=== PATIENT | female | born 1955 | race Two or more races ===

== ENCOUNTER 2016-09-18 15:43 | Inpatient (IN) | payer MEDICAID ==
[~2016-09-18] VITALS: Ht 170.2 cm; Wt 69.4 kg
[2016-09-18] MEDS ORDERED: IV NS 0.9% 1,000 ML BAG IV ONE (16:00)
[2016-09-18] MEDS ORDERED: MORPHINE SULFATE INJ 2 MG/ML DISP.SYRIN IV ONE (16:00)
[2016-09-18] MEDS ORDERED: ONDANSETRON HCL/PF 4 MG/2 ML VIAL IVP ONE (16:00)
[2016-09-18] MEDS ORDERED: DICYCLOMINE HCL INJ 20 MG/2 ML AMPUL IM ONE ×2 (16:00→16:01)
[2016-09-18] MEDS ORDERED: MORPHINE SULFATE INJ 4 MG/ML DISP.SYRIN ONE (16:01)
[2016-09-18] MEDS ORDERED: ONDANSETRON HCL/PF 4 MG/2 ML VIAL ONE ×3 (16:01→22:30)
[2016-09-18] MEDS ORDERED: IV NS 0.9% 1,000 ML ONE (16:01)
[2016-09-18] MEDS ORDERED: IV SET PRIMARY 1 EA INFUS.SET MC ONE (16:01)
[2016-09-18 16:16] LABS: BASOPHILS # (AUTO) 0.2 /CMM (0.0-0.2); BASOPHILS % (AUTO) 1.1 % (0.0-2.0); DIFF TOTAL % 100 %; EOSINOPHILS # (AUTO) 0.3 /CMM (0.0-0.7); EOSINOPHILS % (AUTO) 1.4 % (0.0-6.0); HEMATOCRIT 42 % (33-45); HEMOGLOBIN 14.2 g/dL (11.5-14.8); LYMPHOCYTES # (AUTO) 2.4 /CMM (0.8-4.8); LYMPHOCYTES % (AUTO) 12.1 % (20.0-44.0); MEAN CORPUSCULAR HEMOGLOBIN 31 PG (26.0-33.0); MEAN CORPUSCULAR HGB CONC 34 g/dl (31.0-36.0); MEAN CORPUSCULAR VOLUME 92 fL (82-100); MONOCYTES # (AUTO) 1.3 /CMM (0.1-1.30); MONOCYTES % (AUTO) 6.7 % (2.0-12.0); NEUTROPHILS # (AUTO) 15.5 /CMM (1.8-8.9); NEUTROPHILS % (AUTO) 78.7 % (43.0-81.0); PLATELET COUNT (AUTO) 162 /CMM (150-450); RED BLOOD CELL COUNT(AUTO) 4.56 MIL/uL (4.0-5.2); WHITE BLOOD COUNT (AUTO) 19.7 K/uL (4.3-11.0)
[2016-09-18 16:30] LABS: ALANINE AMINOTRANSFERASE 52 U/L (12-78); ALBUMIN 4.2 g/dL (3.4-5.0); ANION GAP 16 (5-14); ASPARTATE AMINOTRANSFERASE 71 U/L (15-37); BILIRUBIN,DIRECT 0.3 mg/dL (0.0-0.2); BILIRUBIN,TOTAL 1.1 mg/dL (0.2-1.0); CALCIUM, SERUM 9.5 mg/dL (8.5-10.1); CARBON DIOXIDE 26 mmol/L (21-32); CHLORIDE 104 mmol/L (98-107); CREATININE 1.4 mg/dL (0.6-1.3); GFR 38 mL/min (>60); GLUCOSE 191 mg/dL (74-106); INDIRECT BILIRUBIN 0.8 mg/dL (0.0-1.1); POTASSIUM 3.7 mmol/L (3.5-5.1); SODIUM SERUM 142 mmol/L (136-145); TOTAL PROTEIN, SERUM 8.3 g/dL (6.4-8.2); UREA NITROGEN, BLOOD 26 mg/dL (7-18)
[2016-09-18] MEDS ORDERED: ONDANSETRON HCL/PF 4 MG/2 ML VIAL IV ONE (17:30)
[2016-09-18] MEDS ORDERED: HYDROMORPHONE 1 MG/1 ML DISP.SYRIN ONE (17:39)
[2016-09-18] MEDS ORDERED: LISI40TA4 PO (17:53)
[2016-09-18] MEDS ORDERED: ASPI81TA2 PO (17:53)
[2016-09-18] MEDS ORDERED: INSU100V26 SQ (17:53)
[2016-09-18] MEDS ORDERED: METF10002 PO (17:53)
[2016-09-18] MEDS ORDERED: ATOR40TA PO (17:53)
[2016-09-18] MEDS ORDERED: HYDROMORPHONE INJ 2 MG/ML DISP.SYRIN IV ONE (18:00)
[2016-09-18] MEDS ORDERED: LORAZEPAM INJ 2 MG/ML VIAL ONE (18:39)
[2016-09-18] MEDS ORDERED: LORAZEPAM INJ 2 MG/ML VIAL IV ONE (19:00)
[2016-09-18 20:30] VITALS: BP 128/80
[2016-09-18] MEDS ORDERED: HYDROMORPHONE 1 MG/1 ML DISP.SYRIN IV PRN (22:30)
[2016-09-18] MEDS: ONDANSETRON HCL/PF 4 MG/2 ML VIAL IV PRN (22:34)
[2016-09-18] MEDS ORDERED: DEXTROSE 50%-WATER 50 ML DISP.SYRIN IV PRN (23:30)
[2016-09-18] MEDS ORDERED: ONDANSETRON HCL/PF 4 MG/2 ML VIAL IVP PRN (23:30)
[2016-09-18] MEDS ORDERED: Potassium Chloride 20 MEQ in IV D5/0.45 NACL 1,000 ML IV PRN (23:30)
[2016-09-19] MEDS: BLOOD SUGAR DIAGNOSTIC 1 EACH STRIP IN SCH ×4 (00:07→18:23)
[2016-09-19] MEDS: INSULIN REGULAR, HUMAN 100 UNIT/ML 3 ML VIAL SQ PRN ×4 (00:21→18:26)
[2016-09-19] MEDS ORDERED: HYDROMORPHONE 1 MG/1 ML DISP.SYRIN ONE (02:14)
[2016-09-19] MEDS ORDERED: ONDANSETRON HCL/PF 4 MG/2 ML VIAL ONE (05:27)
[2016-09-19] MEDS ORDERED: HYDROMORPHONE INJ 2 MG/ML DISP.SYRIN ONE (05:44)
[2016-09-19] MEDS: HYDROMORPHONE INJ 2 MG/ML DISP.SYRIN IV PRN ×2 (05:48→13:12)
[2016-09-19] MEDS: ONDANSETRON HCL/PF 4 MG/2 ML VIAL IV PRN ×4 (05:48→20:48)
[2016-09-19] MEDS ORDERED: IV SET PRIMARY PUMP SET 1 EA INFUS.SET MC ONE ×2 (08:58→14:32)
[2016-09-19] MEDS: PANTOPRAZOLE 40 MG VIAL IV SCH (09:07)
[2016-09-19 09:27] LABS: BASOPHILS # (AUTO) 0.1 /CMM (0.0-0.2); BASOPHILS % (AUTO) 0.4 % (0.0-2.0); DIFF TOTAL % 100 %; HEMATOCRIT 39 % (33-45); LYMPHOCYTES % (AUTO) 6.5 % (20.0-44.0); MEAN CORPUSCULAR HEMOGLOBIN 31 PG (26.0-33.0); MEAN CORPUSCULAR HGB CONC 34 g/dl (31.0-36.0); MEAN CORPUSCULAR VOLUME 91 fL (82-100); MONOCYTES # (AUTO) 1.1 /CMM (0.1-1.30); MONOCYTES % (AUTO) 7.2 % (2.0-12.0); NEUTROPHILS # (AUTO) 13.2 /CMM (1.8-8.9); NEUTROPHILS % (AUTO) 85.9 % (43.0-81.0); PLATELET COUNT (AUTO) 263 /CMM (150-450); RED BLOOD CELL COUNT(AUTO) 4.23 MIL/uL (4.0-5.2); WHITE BLOOD COUNT (AUTO) 15.3 K/uL (4.3-11.0)
[2016-09-19 10:16] LABS: ALBUMIN 3.4 g/dL (3.4-5.0); BILIRUBIN,TOTAL 1.4 mg/dL (0.2-1.0); CALCIUM, SERUM 8.1 mg/dL (8.5-10.1); CREATININE 2.8 mg/dL (0.6-1.3); PHOSPHORUS 4.3 mg/dL (2.5-4.9); POTASSIUM 5.3 mmol/L (3.5-5.1); THYROID STIMULATING HORMONE 1.442 uIU/mL (0.358-3.74); TOTAL PROTEIN, SERUM 7.2 g/dL (6.4-8.2)
[2016-09-19] MEDS: IV D5/0.45 NACL 1,000 ML IV PRN (15:09)
[2016-09-19 16:00] VITALS: BP 90/57
[2016-09-19] MEDS: HYDROMORPHONE 1 MG/1 ML DISP.SYRIN IV PRN ×2 (17:57→22:21)
[2016-09-19 20:00] VITALS: BP 141/62
[2016-09-19 20:06] VITALS: BP 141/62
[2016-09-20] MEDS ORDERED: HYDROMORPHONE 1 MG/1 ML DISP.SYRIN IV ONE
[2016-09-20] MEDS ORDERED: HYDROMORPHONE 1 MG/1 ML DISP.SYRIN ONE (00:20)
[2016-09-20] MEDS: INSULIN REGULAR, HUMAN 100 UNIT/ML 3 ML VIAL SQ PRN ×5 (00:24→23:44)
[2016-09-20] MEDS: BLOOD SUGAR DIAGNOSTIC 1 EACH STRIP IN SCH ×5 (01:00→23:42)
[2016-09-20] MEDS: HYDROMORPHONE 1 MG/1 ML DISP.SYRIN IV PRN ×3 (03:51→22:54)
[2016-09-20] MEDS: IV D5/0.45 NACL 1,000 ML IV PRN (04:45)
[2016-09-20 07:45] LABS: DIFF TOTAL % 100 %; HEMATOCRIT 33 % (33-45); LYMPHOCYTES # (AUTO) 0.6 /CMM (0.8-4.8); LYMPHOCYTES % (AUTO) 3.6 % (20.0-44.0); MEAN CORPUSCULAR HEMOGLOBIN 31 PG (26.0-33.0); MEAN CORPUSCULAR HGB CONC 33 g/dl (31.0-36.0); MEAN CORPUSCULAR VOLUME 93 fL (82-100); MONOCYTES # (AUTO) 0.9 /CMM (0.1-1.30); MONOCYTES % (AUTO) 5.2 % (2.0-12.0); NEUTROPHILS # (AUTO) 15.6 /CMM (1.8-8.9); NEUTROPHILS % (AUTO) 91.2 % (43.0-81.0); PLATELET COUNT (AUTO) 191 /CMM (150-450); RED BLOOD CELL COUNT(AUTO) 3.56 MIL/uL (4.0-5.2); WHITE BLOOD COUNT (AUTO) 17.2 K/uL (4.3-11.0)
[2016-09-20 08:00] VITALS: BP 125/62
[2016-09-20 08:21] LABS: PHOSPHORUS 3.5 mg/dL (2.5-4.9); POTASSIUM 4.5 mmol/L (3.5-5.1)
[2016-09-20] MEDS ORDERED: IV 1/2NS 1000 ML 1,000 ML IV ONE (09:00)
[2016-09-20] MEDS ORDERED: IV SET PRIMARY PUMP SET 1 EA INFUS.SET MC ONE ×2 (09:17→21:29)
[2016-09-20] MEDS: PANTOPRAZOLE 40 MG VIAL IV SCH (09:22)
[2016-09-20 12:50] LABS: BAND % (MANUAL) 2 % (0.0-5.0); LYMPHOCYTES % (MANUAL) 7 % (16-48); PLATELET ESTIMATE ADEQUATE
[2016-09-20 12:51] LABS: RBC MORPHOLOGY COMMENT NORMAL RBC MORPH
[2016-09-20 16:00] VITALS: BP 111/50
[2016-09-20] MEDS: ACETAMINOPHEN 325 MG TABLET PO PRN (19:08)
[2016-09-20 20:00] VITALS: BP 94/46
[2016-09-20] MEDS ORDERED: IV NS 0.9% 2,000 ML ONE (21:29)
[2016-09-20] MEDS: IV NS 0.9% 1,000 ML IV PRN (21:42)
[2016-09-20] MEDS ORDERED: INSULIN DETEMIR 100 UNIT/ML CARTRIDGE SQ ONE (21:55)
[2016-09-20] MEDS ORDERED: INSULIN DETEMIR 100 UNIT/ML CARTRIDGE SQ SCH (22:00)
[2016-09-20 22:45] VITALS: BP 116/45
[2016-09-21] MEDS ORDERED: HYDROMORPHONE 1 MG/1 ML DISP.SYRIN IV ONE (02:00)
[2016-09-21 03:56] LABS: KETONES,URINE NEGATIVE (NEGATIVE); LEUKOCYTE ESTERASE ,URINE NEGATIVE (NEGATIVE)
[2016-09-21] MEDS: IV NS 0.9% 1,000 ML IV PRN ×2 (04:04→20:03)
[2016-09-21 04:06] LABS: ADD UA MICROSCOPIC YES
[2016-09-21 04:12] LABS: RBC,URINE 0-2 /HPF (0-2)
[2016-09-21 04:13] LABS: CREATININE, URINE 145.2 MG/DL (30.0-125.0); URINE TOTAL PROTEIN 86.1 mg/dL (0-11.9)
[2016-09-21 04:13] LABS: ADD URINE CULTURE YES; OTHER CASTS, URINE WBC CASTS 1+ /LPF (None Seen)
[2016-09-21 04:14] LABS: COARSE GRANULAR CASTS,URINE Few /LPF (None Seen)
[2016-09-21] MEDS: ONDANSETRON HCL/PF 4 MG/2 ML VIAL IV PRN ×4 (04:55→22:56)
[2016-09-21] MEDS: BLOOD SUGAR DIAGNOSTIC 1 EACH STRIP IN SCH ×4 (05:30→22:20)
[2016-09-21] MEDS: INSULIN REGULAR, HUMAN 100 UNIT/ML 3 ML VIAL SQ PRN ×4 (05:59→22:25)
[2016-09-21] MEDS: HYDROMORPHONE 1 MG/1 ML DISP.SYRIN IV PRN ×4 (07:12→22:55)
[2016-09-21 07:43] LABS: BASOPHILS % (AUTO) 0.1 % (0.0-2.0); DIFF TOTAL % 100 %; HEMATOCRIT 29 % (33-45); HEMOGLOBIN 9.9 g/dL (11.5-14.8); LYMPHOCYTES # (AUTO) 0.5 /CMM (0.8-4.8); LYMPHOCYTES % (AUTO) 3.4 % (20.0-44.0); MEAN CORPUSCULAR HEMOGLOBIN 32 PG (26.0-33.0); MEAN CORPUSCULAR HGB CONC 34 g/dl (31.0-36.0); MEAN CORPUSCULAR VOLUME 93 fL (82-100); MONOCYTES % (AUTO) 6.2 % (2.0-12.0); NEUTROPHILS # (AUTO) 14.1 /CMM (1.8-8.9); NEUTROPHILS % (AUTO) 90.3 % (43.0-81.0); PLATELET COUNT (AUTO) 178 /CMM (150-450); RED BLOOD CELL COUNT(AUTO) 3.15 MIL/uL (4.0-5.2); WHITE BLOOD COUNT (AUTO) 15.7 K/uL (4.3-11.0)
[2016-09-21 08:04] LABS: ALBUMIN 2.6 g/dL (3.4-5.0); BILIRUBIN,TOTAL 3.3 mg/dL (0.2-1.0); CALCIUM, SERUM 6.7 mg/dL (8.5-10.1); CREATININE 2.2 mg/dL (0.6-1.3); PHOSPHORUS 2.6 mg/dL (2.5-4.9); POTASSIUM 3.7 mmol/L (3.5-5.1)
[2016-09-21 08:31] VITALS: BP 147/59
[2016-09-21 08:32] VITALS: BP 122/82
[2016-09-21] MEDS: PANTOPRAZOLE 40 MG VIAL IV SCH (08:34)
[2016-09-21 09:21] LABS: CREATINE KINASE MB 0.7 ng/mL (0-3.6)
[2016-09-21 16:00] VITALS: BP 149/65
[2016-09-21 20:00] VITALS: BP 121/60
[2016-09-21 21:57] VITALS: BP 121/60
[2016-09-21] MEDS ORDERED: INSULIN DETEMIR 100 UNIT/ML CARTRIDGE SQ SCH (22:00)
[2016-09-22] MEDS: IV NS 0.9% 1,000 ML IV PRN (04:29)
[2016-09-22] MEDS: ONDANSETRON HCL/PF 4 MG/2 ML VIAL IV PRN (05:03)
[2016-09-22] MEDS: BLOOD SUGAR DIAGNOSTIC 1 EACH STRIP IN SCH ×4 (05:41→22:43)
[2016-09-22] MEDS: INSULIN REGULAR, HUMAN 100 UNIT/ML 3 ML VIAL SQ PRN ×5 (05:42→22:47)
[2016-09-22] MEDS: HYDROMORPHONE 1 MG/1 ML DISP.SYRIN IV PRN ×3 (05:42→22:55)
[2016-09-22 08:00] VITALS: BP 141/61
[2016-09-22 08:20] LABS: DIFF TOTAL % 100 %; HEMATOCRIT 29 % (33-45); HEMOGLOBIN 9.7 g/dL (11.5-14.8); LYMPHOCYTES # (AUTO) 0.4 /CMM (0.8-4.8); LYMPHOCYTES % (AUTO) 2.8 % (20.0-44.0); MEAN CORPUSCULAR HEMOGLOBIN 32 PG (26.0-33.0); MEAN CORPUSCULAR HGB CONC 34 g/dl (31.0-36.0); MEAN CORPUSCULAR VOLUME 93 fL (82-100); MONOCYTES # (AUTO) 0.8 /CMM (0.1-1.30); MONOCYTES % (AUTO) 5.6 % (2.0-12.0); NEUTROPHILS # (AUTO) 13.8 /CMM (1.8-8.9); NEUTROPHILS % (AUTO) 91.6 % (43.0-81.0); PLATELET COUNT (AUTO) 215 /CMM (150-450); RED BLOOD CELL COUNT(AUTO) 3.08 MIL/uL (4.0-5.2); WHITE BLOOD COUNT (AUTO) 15.1 K/uL (4.3-11.0)
[2016-09-22 08:47] LABS: CALCIUM, SERUM 6.6 mg/dL (8.5-10.1); CREATININE 1.3 mg/dL (0.6-1.3); PHOSPHORUS 1.8 mg/dL (2.5-4.9); POTASSIUM 3.8 mmol/L (3.5-5.1)
[2016-09-22] MEDS: PANTOPRAZOLE 40 MG VIAL IV SCH (08:54)
[2016-09-22] MEDS: PROCHLORPERAZINE EDISYLATE 10 MG/2 ML VIAL IM PRN (08:55)
[2016-09-22 11:24] LABS: PTH, INTACT 16 pg/mL (15-65)
[2016-09-22 13:13] LABS: *SPE ALBUMIN 2.7 g/dL (2.9-4.4)
[2016-09-22 16:00] VITALS: BP 130/65
[2016-09-22] MEDS ORDERED: NEUTRA PHOS 1 POWD.PACKET PO ONE (16:30)
[2016-09-22 20:00] VITALS: BP 157/79
[2016-09-22] MEDS: INSULIN DETEMIR 100 UNIT/ML CARTRIDGE SQ SCH (22:49)
[2016-09-23] VITALS (8 sets, daily range): BP systolic 109–151; BP diastolic 57–73
[2016-09-23] MEDS ORDERED: HALOPERIDOL LACTATE INJ 5 MG/ML VIAL IM ONE
[2016-09-23] MEDS: ACETAMINOPHEN 325 MG TABLET PO PRN (03:19)
[2016-09-23] MEDS: BLOOD SUGAR DIAGNOSTIC 1 EACH STRIP IN SCH ×3 (05:26→17:09)
[2016-09-23] MEDS: INSULIN REGULAR, HUMAN 100 UNIT/ML 3 ML VIAL SQ PRN ×3 (05:37→17:10)
[2016-09-23] MEDS: PROCHLORPERAZINE EDISYLATE 10 MG/2 ML VIAL IM PRN (07:59)
[2016-09-23] MEDS: PANTOPRAZOLE 40 MG VIAL IV SCH (08:00)
[2016-09-23 08:18] LABS: BASOPHILS % (AUTO) 0.1 % (0.0-2.0); DIFF TOTAL % 100 %; HEMATOCRIT 27 % (33-45); LYMPHOCYTES # (AUTO) 0.7 /CMM (0.8-4.8); LYMPHOCYTES % (AUTO) 4.2 % (20.0-44.0); MEAN CORPUSCULAR HEMOGLOBIN 31 PG (26.0-33.0); MEAN CORPUSCULAR HGB CONC 33 g/dl (31.0-36.0); MEAN CORPUSCULAR VOLUME 93 fL (82-100); MONOCYTES # (AUTO) 1.1 /CMM (0.1-1.30); MONOCYTES % (AUTO) 6.5 % (2.0-12.0); NEUTROPHILS # (AUTO) 14.5 /CMM (1.8-8.9); NEUTROPHILS % (AUTO) 89.2 % (43.0-81.0); PLATELET COUNT (AUTO) 231 /CMM (150-450); RED BLOOD CELL COUNT(AUTO) 2.92 MIL/uL (4.0-5.2); WHITE BLOOD COUNT (AUTO) 16.3 K/uL (4.3-11.0)
[2016-09-23 08:28] LABS: CALCIUM, SERUM 7.3 mg/dL (8.5-10.1); CREATININE 1.1 mg/dL (0.6-1.3); PHOSPHORUS 1.4 mg/dL (2.5-4.9); POTASSIUM 3.2 mmol/L (3.5-5.1)
[2016-09-23] MEDS: HYDROMORPHONE 1 MG/1 ML DISP.SYRIN IV PRN ×3 (10:46→20:06)
[2016-09-23] MEDS: IV NS 0.9% 1,000 ML IV PRN ×2 (12:29→23:37)
[2016-09-23] MEDS: POTASSIUM CHLORIDE 20 MEQ POWDER PACKET PO SCH ×2 (13:05→14:08)
[2016-09-23] MEDS: ONDANSETRON HCL/PF 4 MG/2 ML VIAL IV PRN (14:11)
[2016-09-23] MEDS ORDERED: NEUTRA PHOS 1 POWD.PACKET PO ONE (16:00)
[2016-09-23] MEDS ORDERED: DEXTROSE 50%-WATER 50 ML DISP.SYRIN IV ONE (22:00)
[2016-09-23] MEDS: INSULIN DETEMIR 100 UNIT/ML CARTRIDGE SQ SCH (22:03)
[2016-09-23] MEDS ORDERED: EPINEPHRINE (1:10,000) SYRINGE 1 MG/10 ML DISP.SYRIN IVP ONE (22:30)
[2016-09-23] MEDS ORDERED: PROPOFOL 100 ML IV ONE (22:55)
[2016-09-23] MEDS ORDERED: IV SET PRIMARY PUMP SET 1 EA INFUS.SET MC ONE ×2 (22:55→23:33)
[2016-09-23] MEDS: PROPOFOL 100 ML IV PRN (23:23)
[2016-09-23] MEDS ORDERED: PIPERACILLIN /TAZOBACTAM 2.25 G VIAL IV ONE (23:28)
[2016-09-23] MEDS ORDERED: IV D5W 50 ML IV ONE (23:28)
[2016-09-23] MEDS ORDERED: SECONDARY IV SET 1 EA INFUS.SET MC ONE (23:29)
[2016-09-23] MEDS ORDERED: NOREPINEPHRINE 8 MG in IV D5W 500 ML IV PRN (23:30)
[2016-09-23] MEDS: PIPERACILLIN /TAZOBACTAM 4.5 G in IV D5W 50 ML IV SCH (23:39)
[2016-09-24] VITALS (79 sets, daily range): BP systolic 86–166; BP diastolic 44–77
[2016-09-24] MEDS: BLOOD SUGAR DIAGNOSTIC 1 EACH STRIP IN SCH ×5 (00:20→23:37)
[2016-09-24 00:26] LABS: ABG BASE EXCESS -5.1 mmol/L; ABG HCO3 20.3 mmol/L; ABG PCO2 39.3 mmHg (35.0-45.0); ABG PH 7.332 (7.350-7.450); ABG PO2 278.8 mmHg (75.0-100.0); ABG TOTAL HEMOGLOBIN 8.4 G/dL (12.0-16.0); O2Hb 96.8 % (94.0-97.0)
[2016-09-24] MEDS: INSULIN REGULAR, HUMAN 100 UNIT/ML 3 ML VIAL SQ PRN ×4 (00:33→23:51)
[2016-09-24] MEDS ORDERED: PROPOFOL 100 ML IV ONE (02:33)
[2016-09-24] MEDS: PROPOFOL 100 ML IV PRN ×4 (02:39→21:29)
[2016-09-24] MEDS: HYDROMORPHONE 1 MG/1 ML DISP.SYRIN IV PRN ×2 (02:51→09:53)
[2016-09-24] MEDS ORDERED: PIPERACILLIN /TAZOBACTAM 2.25 G VIAL IV ONE (03:44)
[2016-09-24] MEDS ORDERED: IV D5W 50 ML IV ONE (03:47)
[2016-09-24] MEDS: PIPERACILLIN /TAZOBACTAM 4.5 G in IV D5W 50 ML IV SCH (04:34)
[2016-09-24 04:58] LABS: BASOPHILS % (AUTO) 0.1 % (0.0-2.0); DIFF TOTAL % 100 %; EOSINOPHILS % (AUTO) 0.1 % (0.0-6.0); HEMATOCRIT 22 % (33-45); HEMOGLOBIN 7.6 g/dL (11.5-14.8); LYMPHOCYTES # (AUTO) 0.4 /CMM (0.8-4.8); LYMPHOCYTES % (AUTO) 3.6 % (20.0-44.0); MEAN CORPUSCULAR HEMOGLOBIN 32 PG (26.0-33.0); MEAN CORPUSCULAR HGB CONC 35 g/dl (31.0-36.0); MEAN CORPUSCULAR VOLUME 92 fL (82-100); MONOCYTES # (AUTO) 0.6 /CMM (0.1-1.30); NEUTROPHILS # (AUTO) 11.1 /CMM (1.8-8.9); NEUTROPHILS % (AUTO) 91.2 % (43.0-81.0); PLATELET COUNT (AUTO) 224 /CMM (150-450); RED BLOOD CELL COUNT(AUTO) 2.35 MIL/uL (4.0-5.2); WHITE BLOOD COUNT (AUTO) 12.2 K/uL (4.3-11.0)
[2016-09-24 05:26] LABS: HEMOGLOBIN 7.7 g/dL (11.5-14.8)
[2016-09-24 05:58] LABS: CALCIUM, SERUM 6.8 mg/dL (8.5-10.1); CREATININE 1.4 mg/dL (0.6-1.3); PHOSPHORUS 1.5 mg/dL (2.5-4.9); POTASSIUM 3.5 mmol/L (3.5-5.1)
[2016-09-24] MEDS ORDERED: POTASSIUM CL. PREMIX PERIPHER. 50 ML IV SCH (07:29)
[2016-09-24] MEDS ORDERED: SECONDARY IV SET 1 EA INFUS.SET MC ONE ×2 (07:54→09:24)
[2016-09-24] MEDS ORDERED: POTASSIUM PHOSPHATE MM 15 MMOL in IV D5W 250 ML IV SCH (08:00)
[2016-09-24] MEDS ORDERED: NOREPINEPHRINE 8 MG in IV D5W 500 ML IV PRN (08:00)
[2016-09-24] MEDS: Magnesium 1GM/D5W 100ML PREMIX 100 ML IV SCH ×2 (08:01→09:09)
[2016-09-24] MEDS: PANTOPRAZOLE 40 MG VIAL IV SCH (08:02)
[2016-09-24 08:13] LABS: TROPONIN I 0.079 ng/mL (0.00-0.056)
[2016-09-24] MEDS ORDERED: POTASSIUM PHOSPHATE MM 7.5 MMOL in IV D5W 100 ML IV SCH (08:30)
[2016-09-24] MEDS: POTASSIUM CL. PREMIX PERIPHER. 50 ML IV SCH ×2 (09:27→10:58)
[2016-09-24] MEDS ORDERED: IV SET PRIMARY PUMP SET 1 EA INFUS.SET MC ONE ×3 (09:28→21:18)
[2016-09-24 09:31] LABS: ABG BASE EXCESS -1.4 mmol/L; ABG HCO3 22.1 mmol/L; ABG PH 7.458 (7.350-7.450); ABG PO2 106.1 mmHg (75.0-100.0); AaDO2 214.4 mmHg; O2Hb 95.3 % (94.0-97.0)
[2016-09-24] MEDS: POTASSIUM PHOSPHATE MM 7.5 MMOL in IV D5W 100 ML IV SCH ×2 (10:25→13:01)
[2016-09-24] MEDS ORDERED: FUROSEMIDE 20 MG/2 ML VIAL IV SCH (12:00)
[2016-09-24] MEDS ORDERED: HYDROGEL DRESSING 90 GM TUBE TP PRN (13:30)
[2016-09-24] MEDS ORDERED: Z GUARD REMEDY 2 OZ OINT TP PRN (13:30)
[2016-09-24] MEDS: PIPERACILLIN /TAZOBACTAM 3.375 G in IV D5W 50 ML IV SCH ×3 (13:38→23:36)
[2016-09-24 14:43] LABS: CHOLESTEROL 62 mg/dL (<200); LDL 30 mg/dL (0-99); TRIGLYCERIDES 109 mg/dL (30-150)
[2016-09-24 14:44] LABS: HDL CHOLESTEROL < 10 mg/dL (40-60)
[2016-09-24] MEDS: IV D5/ 0.9% NACL 1,000 ML IV PRN ×2 (15:04→23:37)
[2016-09-24] MEDS: HYDROGEL DRESSING 90 GM TUBE TP SCH (15:04)
[2016-09-24] MEDS: Z GUARD REMEDY 2 OZ OINT TP SCH (15:04)
[2016-09-24 16:15] LABS: IRON, SERUM 14 ug/dl (50-175); PERCENT SATURATION 12 % (14-33); TOTAL IRON BINDING CAPACITY 120 ug/dl (250-450)
[2016-09-24] MEDS: INSULIN DETEMIR 100 UNIT/ML CARTRIDGE SQ SCH (21:26)
[2016-09-25] VITALS (46 sets, daily range): BP systolic 105–160; BP diastolic 31–80
[2016-09-25] MEDS: PROPOFOL 100 ML IV PRN ×2 (05:06→07:38)
[2016-09-25] MEDS: PIPERACILLIN /TAZOBACTAM 3.375 G in IV D5W 50 ML IV SCH ×4 (05:07→23:14)
[2016-09-25] MEDS: BLOOD SUGAR DIAGNOSTIC 1 EACH STRIP IN SCH ×3 (05:10→17:01)
[2016-09-25] MEDS: INSULIN REGULAR, HUMAN 100 UNIT/ML 3 ML VIAL SQ PRN ×2 (05:12→17:14)
[2016-09-25 05:24] LABS: BASOPHILS # (AUTO) 0.1 /CMM (0.0-0.2); BASOPHILS % (AUTO) 0.4 % (0.0-2.0); DIFF TOTAL % 100 %; EOSINOPHILS # (AUTO) 0.1 /CMM (0.0-0.7); EOSINOPHILS % (AUTO) 0.6 % (0.0-6.0); HEMATOCRIT 22 % (33-45); HEMOGLOBIN 7.7 g/dL (11.5-14.8); LYMPHOCYTES # (AUTO) 0.8 /CMM (0.8-4.8); LYMPHOCYTES % (AUTO) 5.2 % (20.0-44.0); MEAN CORPUSCULAR HEMOGLOBIN 32 PG (26.0-33.0); MEAN CORPUSCULAR HGB CONC 35 g/dl (31.0-36.0); MEAN CORPUSCULAR VOLUME 91 fL (82-100); MONOCYTES # (AUTO) 0.8 /CMM (0.1-1.30); MONOCYTES % (AUTO) 5.1 % (2.0-12.0); NEUTROPHILS # (AUTO) 13.8 /CMM (1.8-8.9); NEUTROPHILS % (AUTO) 88.7 % (43.0-81.0); PLATELET COUNT (AUTO) 293 /CMM (150-450); WHITE BLOOD COUNT (AUTO) 15.6 K/uL (4.3-11.0)
[2016-09-25 05:41] LABS: PROTHROMBIN TIME 10.8 SECS (9.5-12.7)
[2016-09-25 06:06] LABS: ALBUMIN 1.6 g/dL (3.4-5.0); BILIRUBIN,TOTAL 0.8 mg/dL (0.2-1.0); CALCIUM, SERUM 7.3 mg/dL (8.5-10.1); PHOSPHORUS 1.7 mg/dL (2.5-4.9); TOTAL PROTEIN, SERUM 5.5 g/dL (6.4-8.2)
[2016-09-25 06:09] LABS: TROPONIN I 0.043 ng/mL (0.00-0.056)
[2016-09-25 06:15] LABS: POTASSIUM 2.8 mmol/L (3.5-5.1)
[2016-09-25] MEDS ORDERED: POTASSIUM CL. PREMIX PERIPHER. 50 ML ONE ×2 (06:37→15:44)
[2016-09-25] MEDS ORDERED: IV SET PRIMARY PUMP SET 1 EA INFUS.SET MC ONE ×3 (06:37→10:01)
[2016-09-25] MEDS ORDERED: POTASSIUM CL. PREMIX PERIPHER. 50 ML IV SCH (07:00)
[2016-09-25] MEDS ORDERED: SECONDARY IV SET 1 EA INFUS.SET MC ONE (07:32)
[2016-09-25] MEDS: POTASSIUM CL. PREMIX PERIPHER. 50 ML IV SCH ×6 (07:50→15:51)
[2016-09-25] MEDS: PANTOPRAZOLE 40 MG VIAL IV SCH (08:55)
[2016-09-25] MEDS: Z GUARD REMEDY 2 OZ OINT TP SCH (08:56)
[2016-09-25] MEDS: HYDROGEL DRESSING 90 GM TUBE TP SCH (08:56)
[2016-09-25 09:23] LABS: ABG BASE EXCESS -3.5 mmol/L; ABG HCO3 19.3 mmol/L; ABG PCO2 26.5 mmHg (35.0-45.0); ABG TOTAL HEMOGLOBIN 8.1 G/dL (12.0-16.0); ALLEN TEST Pass; AaDO2 168.7 mmHg
[2016-09-25 09:31] LABS: BAND % (MANUAL) 1 % (0.0-5.0); EOSINOPHILS % (MANUAL) 1 % (0-4); LYMPHOCYTES % (MANUAL) 4 % (16-48); PLATELET ESTIMATE ADEQUATE
[2016-09-25 09:32] LABS: HYPOCHROMASIA 1+
[2016-09-25] MEDS: Potassium Phosphate meq 11 MEQ in IV D5W 100 ML IV SCH ×2 (10:05→12:21)
[2016-09-25] MEDS ORDERED: LORAZEPAM INJ 2 MG/ML VIAL IV ONE (10:30)
[2016-09-25] MEDS: INSULIN DETEMIR 100 UNIT/ML CARTRIDGE SQ SCH (21:52)
[2016-09-25] MEDS: IV D5/ 0.9% NACL 1,000 ML IV PRN (22:56)
[2016-09-26] VITALS (44 sets, daily range): BP systolic 128–173; BP diastolic 49–118
[2016-09-26 05:25] LABS: BASOPHILS % (AUTO) 0.1 % (0.0-2.0); DIFF TOTAL % 100 %; EOSINOPHILS % (AUTO) 0.2 % (0.0-6.0); HEMATOCRIT 26 % (33-45); HEMOGLOBIN 8.8 g/dL (11.5-14.8); LYMPHOCYTES # (AUTO) 0.7 /CMM (0.8-4.8); MEAN CORPUSCULAR HEMOGLOBIN 32 PG (26.0-33.0); MEAN CORPUSCULAR HGB CONC 34 g/dl (31.0-36.0); MEAN CORPUSCULAR VOLUME 93 fL (82-100); MONOCYTES # (AUTO) 1.2 /CMM (0.1-1.30); MONOCYTES % (AUTO) 5.2 % (2.0-12.0); NEUTROPHILS # (AUTO) 21.8 /CMM (1.8-8.9); NEUTROPHILS % (AUTO) 91.5 % (43.0-81.0); PLATELET COUNT (AUTO) 304 /CMM (150-450); RED BLOOD CELL COUNT(AUTO) 2.75 MIL/uL (4.0-5.2); WHITE BLOOD COUNT (AUTO) 23.8 K/uL (4.3-11.0)
[2016-09-26] MEDS: PIPERACILLIN /TAZOBACTAM 3.375 G in IV D5W 50 ML IV SCH ×4 (05:40→23:37)
[2016-09-26] MEDS: BLOOD SUGAR DIAGNOSTIC 1 EACH STRIP IN SCH ×5 (05:44→23:37)
[2016-09-26 05:46] LABS: ALBUMIN 1.7 g/dL (3.4-5.0); BILIRUBIN,TOTAL 1.1 mg/dL (0.2-1.0); CALCIUM, SERUM 7.7 mg/dL (8.5-10.1); CREATININE 1.4 mg/dL (0.6-1.3); PHOSPHORUS 3.1 mg/dL (2.5-4.9); POTASSIUM 3.8 mmol/L (3.5-5.1); TOTAL PROTEIN, SERUM 5.9 g/dL (6.4-8.2)
[2016-09-26] MEDS: INSULIN REGULAR, HUMAN 100 UNIT/ML 3 ML VIAL SQ PRN ×4 (05:54→23:39)
[2016-09-26] MEDS: PANTOPRAZOLE 40 MG VIAL IV SCH (09:22)
[2016-09-26] MEDS: HYDROGEL DRESSING 90 GM TUBE TP SCH (09:23)
[2016-09-26] MEDS: Z GUARD REMEDY 2 OZ OINT TP SCH (09:24)
[2016-09-26] MEDS ORDERED: DIATR MEGLU/DIATRIZOATE SODIUM 120 ML BOTTLE (GASTROGRAPHIN) ONE (10:43)
[2016-09-26 11:33] LABS: BAND % (MANUAL) 3 % (0.0-5.0); LYMPHOCYTES % (MANUAL) 4 % (16-48); PLATELET ESTIMATE ADEQUATE
[2016-09-26] MEDS: IV D5/ 0.9% NACL 1,000 ML IV PRN ×2 (12:48→22:08)
[2016-09-26] MEDS: METOCLOPRAMIDE HCL 10 MG/2 ML VIAL IV SCH ×2 (13:32→19:27)
[2016-09-26] MEDS: INSULIN DETEMIR 100 UNIT/ML CARTRIDGE SQ SCH (21:24)
[2016-09-27] VITALS (41 sets, daily range): BP systolic 76–188; BP diastolic 32–110
[2016-09-27] MEDS: METOCLOPRAMIDE HCL 10 MG/2 ML VIAL IV SCH ×4 (01:12→19:30)
[2016-09-27] MEDS: HYDROMORPHONE 1 MG/1 ML DISP.SYRIN IV PRN (02:12)
[2016-09-27] MEDS: PIPERACILLIN /TAZOBACTAM 3.375 G in IV D5W 50 ML IV SCH ×3 (05:05→18:09)
[2016-09-27] MEDS: BLOOD SUGAR DIAGNOSTIC 1 EACH STRIP IN SCH ×3 (05:05→18:07)
[2016-09-27] MEDS: INSULIN REGULAR, HUMAN 100 UNIT/ML 3 ML VIAL SQ PRN ×2 (05:06→18:08)
[2016-09-27 05:22] LABS: DIFF TOTAL % 100 %; EOSINOPHILS % (AUTO) 0.2 % (0.0-6.0); HEMATOCRIT 26 % (33-45); HEMOGLOBIN 8.6 g/dL (11.5-14.8); LYMPHOCYTES % (AUTO) 3.5 % (20.0-44.0); MEAN CORPUSCULAR HEMOGLOBIN 31 PG (26.0-33.0); MEAN CORPUSCULAR HGB CONC 34 g/dl (31.0-36.0); MEAN CORPUSCULAR VOLUME 92 fL (82-100); MONOCYTES # (AUTO) 1.6 /CMM (0.1-1.30); MONOCYTES % (AUTO) 5.7 % (2.0-12.0); NEUTROPHILS # (AUTO) 24.9 /CMM (1.8-8.9); NEUTROPHILS % (AUTO) 90.6 % (43.0-81.0); PLATELET COUNT (AUTO) 355 /CMM (150-450); RED BLOOD CELL COUNT(AUTO) 2.78 MIL/uL (4.0-5.2); WHITE BLOOD COUNT (AUTO) 27.5 K/uL (4.3-11.0)
[2016-09-27] MEDS: IV D5/ 0.9% NACL 1,000 ML IV PRN (05:43)
[2016-09-27 05:54] LABS: CREATININE 1.3 mg/dL (0.6-1.3); POTASSIUM 3.3 mmol/L (3.5-5.1)
[2016-09-27] MEDS ORDERED: IV D5/0.45 NACL 1,000 ML IV ONE (06:44)
[2016-09-27] MEDS ORDERED: IV D5/0.45 NACL 1,000 ML IV PRN (07:00)
[2016-09-27] MEDS ORDERED: SECONDARY IV SET 1 EA INFUS.SET MC ONE (08:25)
[2016-09-27] MEDS: PANTOPRAZOLE 40 MG VIAL IV SCH (08:36)
[2016-09-27] MEDS: POTASSIUM CL. PREMIX PERIPHER. 50 ML IV SCH ×6 (08:36→14:04)
[2016-09-27] MEDS: Z GUARD REMEDY 2 OZ OINT TP SCH (08:37)
[2016-09-27] MEDS: HYDROGEL DRESSING 90 GM TUBE TP SCH (08:37)
[2016-09-27] MEDS ORDERED: IV D5W 1,000 ML IV ONE (10:30)
[2016-09-27 14:42] LABS: BAND % (MANUAL) 5 % (0.0-5.0); LYMPHOCYTES % (MANUAL) 9 % (16-48); PLATELET ESTIMATE ADEQUATE
[2016-09-27] MEDS: PANTOPRAZOLE 40 MG TABLET.DR PO SCH (20:33)
[2016-09-27] MEDS ORDERED: SODIUM BICARBONATE SYR 50 MEQ/50 ML DISP.SYRIN IV ONE (21:00)
[2016-09-27] MEDS ORDERED: EPINEPHRINE (1:10,000) SYRINGE 1 MG/10 ML DISP.SYRIN IVP ONE (21:00)
[2016-09-27] MEDS ORDERED: CALCIUM CHLORIDE 1,000 MG/10 ML DISP.SYRIN IV ONE (21:00)
[2016-09-27] MEDS ORDERED: PROPOFOL 100 ML IV ONE (21:53)
[2016-09-27] MEDS ORDERED: IV SET PRIMARY PUMP SET 1 EA INFUS.SET MC ONE ×2 (21:54→22:14)
[2016-09-27] MEDS ORDERED: NOREPINEPHRINE 4 MG/4 ML AMPUL IV ONE (22:13)
[2016-09-27] MEDS ORDERED: IV D5W 500 ML IV ONE (22:13)
[2016-09-27] MEDS: NOREPINEPHRINE 8 MG in IV D5W 500 ML IV PRN (22:21)
[2016-09-27] MEDS: INSULIN DETEMIR 100 UNIT/ML CARTRIDGE SQ SCH (22:27)
[2016-09-27] MEDS ORDERED: IPRATROPIUM NEB FS 0.5 MG/2.5 ML AMPUL.NEB NEB SCH (22:30)
[2016-09-27] MEDS: PROPOFOL 100 ML IV PRN (22:56)
[2016-09-27 23:32] LABS: ABG BASE EXCESS -5.6 mmol/L; ABG HCO3 20.3 mmol/L; ABG PCO2 41.1 mmHg (35.0-45.0); ABG PH 7.311 (7.350-7.450); ABG PO2 122.5 mmHg (75.0-100.0); ABG TOTAL HEMOGLOBIN 10.1 G/dL (12.0-16.0); AaDO2 549.4 mmHg; O2Hb 95.7 % (94.0-97.0)
[2016-09-27] MEDS ORDERED: IV NS 0.9% 1,000 ML ONE (23:42)
[2016-09-28] VITALS (106 sets, daily range): BP systolic 81–132; BP diastolic 40–66
[2016-09-28] MEDS ORDERED: IV NS 0.9% 1,000 ML IV PRN
[2016-09-28] MEDS: ALBUTEROL FS 2.5 MG/0.5 ML VIAL.NEB NEB SCH ×7 (00:03→23:01)
[2016-09-28] MEDS: IPRATROPIUM NEB FS 0.5 MG/2.5 ML AMPUL.NEB NEB SCH ×6 (00:04→23:01)
[2016-09-28] MEDS: Potassium Chloride 20 MEQ in IV D5W 1,000 ML IV PRN ×3 (00:38→21:44)
[2016-09-28] MEDS: METOCLOPRAMIDE HCL 10 MG/2 ML VIAL IV SCH ×4 (00:40→20:25)
[2016-09-28] MEDS: BLOOD SUGAR DIAGNOSTIC 1 EACH STRIP IN SCH ×5 (00:40→23:56)
[2016-09-28] MEDS: PIPERACILLIN /TAZOBACTAM 3.375 G in IV D5W 50 ML IV SCH ×5 (00:40→23:56)
[2016-09-28] MEDS ORDERED: SECONDARY IV SET 1 EA INFUS.SET MC ONE ×2 (00:48→08:39)
[2016-09-28] MEDS: INSULIN REGULAR, HUMAN 100 UNIT/ML 3 ML VIAL SQ PRN ×4 (00:52→17:26)
[2016-09-28] MEDS: ACETAMINOPHEN 650 MG/SUPP.RECT RC PRN ×2 (04:37→19:46)
[2016-09-28] MEDS: PROPOFOL 100 ML IV PRN ×2 (05:00→11:12)
[2016-09-28 05:16] LABS: HEMATOCRIT 25 % (33-45); HEMOGLOBIN 8.5 g/dL (11.5-14.8); MEAN CORPUSCULAR HEMOGLOBIN 31 PG (26.0-33.0); MEAN CORPUSCULAR HGB CONC 34 g/dl (31.0-36.0); MEAN CORPUSCULAR VOLUME 92 fL (82-100); PLATELET COUNT (AUTO) 306 /CMM (150-450); RED BLOOD CELL COUNT(AUTO) 2.74 MIL/uL (4.0-5.2); WHITE BLOOD COUNT (AUTO) 8.4 K/uL (4.3-11.0)
[2016-09-28] MEDS ORDERED: NOREPINEPHRINE 4 MG/4 ML AMPUL IV ONE (05:19)
[2016-09-28] MEDS ORDERED: IV D5W 500 ML IV ONE (05:19)
[2016-09-28 05:44] LABS: BILIRUBIN,TOTAL 2.4 mg/dL (0.2-1.0); CALCIUM, SERUM 8.2 mg/dL (8.5-10.1); CREATININE 2.5 mg/dL (0.6-1.3); PHOSPHORUS 1.4 mg/dL (2.5-4.9); POTASSIUM 3.6 mmol/L (3.5-5.1); TOTAL PROTEIN, SERUM 5.2 g/dL (6.4-8.2)
[2016-09-28 05:57] LABS: ALBUMIN 1.4 g/dL (3.4-5.0)
[2016-09-28] MEDS: NOREPINEPHRINE 8 MG in IV D5W 500 ML IV PRN (06:01)
[2016-09-28 06:12] LABS: BAND % (MANUAL) 28 % (0.0-5.0); BASOPHILS % (MANUAL) 0 % (0.0-2.0); CORRECTED WHITE BLOOD COUNT 7.6 K/uL (4.0-11.2); EOSINOPHILS % (MANUAL) 0 % (0-4); LYMPHOCYTES % (MANUAL) 2 % (16-48); PLATELET ESTIMATE ADEQUATE
[2016-09-28] MEDS: PANTOPRAZOLE 40 MG TABLET.DR PO SCH (07:30)
[2016-09-28] MEDS: Magnesium 1GM/D5W 100ML PREMIX 100 ML IV SCH ×2 (08:42→10:14)
[2016-09-28] MEDS: PANTOPRAZOLE 40 MG VIAL IV SCH (08:42)
[2016-09-28] MEDS: Z GUARD REMEDY 2 OZ OINT TP SCH (08:43)
[2016-09-28] MEDS: HYDROGEL DRESSING 90 GM TUBE TP SCH (08:43)
[2016-09-28] MEDS ORDERED: IV NS 0.9% 250 ML IV ONE ×2 (08:49→23:56)
[2016-09-28 09:58] LABS: ABG BASE EXCESS -6.3 mmol/L; ABG HCO3 17.8 mmol/L; ABG PCO2 29.8 mmHg (35.0-45.0); ABG PH 7.393 (7.350-7.450); ABG PO2 67.3 mmHg (75.0-100.0); ABG TOTAL HEMOGLOBIN 9.1 G/dL (12.0-16.0); AaDO2 615.9 mmHg; O2Hb 90.5 % (94.0-97.0)
[2016-09-28] MEDS ORDERED: NOREPINEPHRINE 16 MG in IV D5W 500 ML IV PRN (10:30)
[2016-09-28] MEDS ORDERED: IV SET PRIMARY PUMP SET 1 EA INFUS.SET MC ONE ×3 (11:07→23:56)
[2016-09-28] MEDS ORDERED: IV D5W 1,000 ML IV PRN (21:00)
[2016-09-28] MEDS ORDERED: POTASSIUM PHOSPHATE MM 15 MMOL in IV D5W 250 ML IV SCH (21:00)
[2016-09-28] MEDS ORDERED: ALBUMIN 25% 12.5 GM/50 ML BOTTLE IV STA (21:02)
[2016-09-28] MEDS: INSULIN DETEMIR 100 UNIT/ML CARTRIDGE SQ SCH (22:19)
[2016-09-28] MEDS ORDERED: FUROSEMIDE 100 MG/10 ML VIAL IV ONE (23:59)
[2016-09-29] VITALS (105 sets, daily range): BP systolic 88–156; BP diastolic 39–68
[2016-09-29] MEDS: METOCLOPRAMIDE HCL 10 MG/2 ML VIAL IV SCH ×4 (00:53→19:22)
[2016-09-29] MEDS: INSULIN REGULAR, HUMAN 100 UNIT/ML 3 ML VIAL SQ PRN ×4 (01:38→18:06)
[2016-09-29] MEDS: IPRATROPIUM NEB FS 0.5 MG/2.5 ML AMPUL.NEB NEB SCH ×6 (03:41→23:24)
[2016-09-29] MEDS: ALBUTEROL FS 2.5 MG/0.5 ML VIAL.NEB NEB SCH ×6 (03:41→23:24)
[2016-09-29] MEDS: PIPERACILLIN /TAZOBACTAM 3.375 G in IV D5W 50 ML IV SCH ×4 (05:01→23:41)
[2016-09-29] MEDS: BLOOD SUGAR DIAGNOSTIC 1 EACH STRIP IN SCH ×4 (05:01→23:41)
[2016-09-29 05:55] LABS: ALBUMIN 2.1 g/dL (3.4-5.0); CALCIUM, SERUM 7.6 mg/dL (8.5-10.1); CREATININE 4.1 mg/dL (0.6-1.3); PHOSPHORUS 4.4 mg/dL (2.5-4.9); POTASSIUM 3.3 mmol/L (3.5-5.1); TOTAL PROTEIN, SERUM 5.3 g/dL (6.4-8.2)
[2016-09-29 07:35] LABS: DIFF TOTAL % 100 %; EOSINOPHILS # (AUTO) 0.1 /CMM (0.0-0.7); EOSINOPHILS % (AUTO) 0.5 % (0.0-6.0); LYMPHOCYTES # (AUTO) 0.7 /CMM (0.8-4.8); LYMPHOCYTES % (AUTO) 2.9 % (20.0-44.0); MEAN CORPUSCULAR HEMOGLOBIN 31 PG (26.0-33.0); MEAN CORPUSCULAR HGB CONC 34 g/dl (31.0-36.0); MEAN CORPUSCULAR VOLUME 93 fL (82-100); MONOCYTES # (AUTO) 0.2 /CMM (0.1-1.30); MONOCYTES % (AUTO) 0.6 % (2.0-12.0); NEUTROPHILS # (AUTO) 22.6 /CMM (1.8-8.9); PLATELET COUNT (AUTO) 108 /CMM (150-450); RED BLOOD CELL COUNT(AUTO) 2.08 MIL/uL (4.0-5.2); WHITE BLOOD COUNT (AUTO) 23.5 K/uL (4.3-11.0)
[2016-09-29 07:39] LABS: HEMATOCRIT 19 % (33-45); HEMOGLOBIN 6.5 g/dL (11.5-14.8)
[2016-09-29] MEDS: PANTOPRAZOLE 40 MG VIAL IV SCH (07:59)
[2016-09-29] MEDS: ACETAMINOPHEN 650 MG/SUPP.RECT RC PRN (07:59)
[2016-09-29] MEDS: Z GUARD REMEDY 2 OZ OINT TP SCH (08:00)
[2016-09-29] MEDS: HYDROGEL DRESSING 90 GM TUBE TP SCH (08:01)
[2016-09-29 08:16] LABS: BASOPHILS % (AUTO) 0.2 % (0.0-2.0); DIFF TOTAL % 100 %; EOSINOPHILS # (AUTO) 0.1 /CMM (0.0-0.7); EOSINOPHILS % (AUTO) 0.3 % (0.0-6.0); LYMPHOCYTES # (AUTO) 0.8 /CMM (0.8-4.8); LYMPHOCYTES % (AUTO) 3.6 % (20.0-44.0); MEAN CORPUSCULAR HEMOGLOBIN 31 PG (26.0-33.0); MEAN CORPUSCULAR HGB CONC 34 g/dl (31.0-36.0); MEAN CORPUSCULAR VOLUME 92 fL (82-100); MONOCYTES # (AUTO) 0.1 /CMM (0.1-1.30); MONOCYTES % (AUTO) 0.4 % (2.0-12.0); NEUTROPHILS # (AUTO) 22.4 /CMM (1.8-8.9); NEUTROPHILS % (AUTO) 95.5 % (43.0-81.0); PLATELET COUNT (AUTO) 110 /CMM (150-450); RED BLOOD CELL COUNT(AUTO) 2.11 MIL/uL (4.0-5.2); WHITE BLOOD COUNT (AUTO) 23.5 K/uL (4.3-11.0)
[2016-09-29 08:19] LABS: HEMATOCRIT 19 % (33-45); HEMOGLOBIN 6.5 g/dL (11.5-14.8)
[2016-09-29 08:58] LABS: ABG BASE EXCESS -6.6 mmol/L; ABG HCO3 17.6 mmol/L; ABG PH 7.401 (7.350-7.450); ABG PO2 82.8 mmHg (75.0-100.0); ALLEN TEST Pass; AaDO2 457.2 mmHg
[2016-09-29 10:15] LABS: ANISOCYTOSIS 1+; BAND % (MANUAL) 10 % (0.0-5.0); LYMPHOCYTES % (MANUAL) 3 % (16-48); PLATELET ESTIMATE DECREASED
[2016-09-29] MEDS ORDERED: IV NS 0.9% 250 ML IV ONE (11:22)
[2016-09-29] MEDS ORDERED: BLOOD IV SET 1 EA INFUS.SET MC ONE (11:22)
[2016-09-29] MEDS: Potassium Chloride 20 MEQ in IV D5W 1,000 ML IV PRN (18:07)
[2016-09-29] MEDS ORDERED: FUROSEMIDE 40 MG/4 ML VIAL IV ONE (21:00)
[2016-09-29] MEDS: INSULIN DETEMIR 100 UNIT/ML CARTRIDGE SQ SCH (21:26)
[2016-09-29 21:47] LABS: ABG BASE EXCESS -9.7 mmol/L; ABG HCO3 16.3 mmol/L; ABG PCO2 36.1 mmHg (35.0-45.0); ABG PH 7.272 (7.350-7.450); ABG PO2 67.1 mmHg (75.0-100.0); ABG TOTAL HEMOGLOBIN 10.2 G/dL (12.0-16.0); ALLEN TEST Pass; AaDO2 609.8 mmHg; O2Hb 89.1 % (94.0-97.0)
[2016-09-30] VITALS (91 sets, daily range): BP systolic 94–158; BP diastolic 38–92
[2016-09-30] MEDS: INSULIN REGULAR, HUMAN 100 UNIT/ML 3 ML VIAL SQ PRN ×5 (00:16→23:49)
[2016-09-30] MEDS: METOCLOPRAMIDE HCL 10 MG/2 ML VIAL IV SCH ×4 (00:35→19:49)
[2016-09-30 00:53] LABS: DIFF TOTAL % 100 %; EOSINOPHILS % (AUTO) 0.1 % (0.0-6.0); HEMATOCRIT 26 % (33-45); HEMOGLOBIN 8.9 g/dL (11.5-14.8); LYMPHOCYTES # (AUTO) 0.6 /CMM (0.8-4.8); LYMPHOCYTES % (AUTO) 2.3 % (20.0-44.0); MEAN CORPUSCULAR HEMOGLOBIN 30 PG (26.0-33.0); MEAN CORPUSCULAR HGB CONC 34 g/dl (31.0-36.0); MEAN CORPUSCULAR VOLUME 89 fL (82-100); MONOCYTES # (AUTO) 0.2 /CMM (0.1-1.30); MONOCYTES % (AUTO) 0.8 % (2.0-12.0); NEUTROPHILS # (AUTO) 24.5 /CMM (1.8-8.9); NEUTROPHILS % (AUTO) 96.8 % (43.0-81.0); PLATELET COUNT (AUTO) 85 /CMM (150-450); RED BLOOD CELL COUNT(AUTO) 2.93 MIL/uL (4.0-5.2); WHITE BLOOD COUNT (AUTO) 25.3 K/uL (4.3-11.0)
[2016-09-30] MEDS: ALBUTEROL FS 2.5 MG/0.5 ML VIAL.NEB NEB SCH ×6 (03:18→23:10)
[2016-09-30] MEDS: IPRATROPIUM NEB FS 0.5 MG/2.5 ML AMPUL.NEB NEB SCH ×6 (03:18→23:10)
[2016-09-30] MEDS ORDERED: IV NS 0.9% 250 ML IV ONE (03:32)
[2016-09-30] MEDS ORDERED: IV SET PRIMARY PUMP SET 1 EA INFUS.SET MC ONE (03:49)
[2016-09-30 04:50] LABS: BAND % (MANUAL) 10 % (0.0-5.0); BASOPHILS % (MANUAL) 0 % (0.0-2.0); EOSINOPHILS % (MANUAL) 0 % (0-4); LYMPHOCYTES % (MANUAL) 3 % (16-48)
[2016-09-30 05:18] LABS: DIFF TOTAL % 100 %; HEMATOCRIT 25 % (33-45); HEMOGLOBIN 8.5 g/dL (11.5-14.8); LYMPHOCYTES # (AUTO) 0.6 /CMM (0.8-4.8); LYMPHOCYTES % (AUTO) 2.6 % (20.0-44.0); MEAN CORPUSCULAR HEMOGLOBIN 30 PG (26.0-33.0); MEAN CORPUSCULAR HGB CONC 34 g/dl (31.0-36.0); MEAN CORPUSCULAR VOLUME 88 fL (82-100); MONOCYTES # (AUTO) 0.1 /CMM (0.1-1.30); MONOCYTES % (AUTO) 0.6 % (2.0-12.0); NEUTROPHILS # (AUTO) 23.6 /CMM (1.8-8.9); NEUTROPHILS % (AUTO) 96.8 % (43.0-81.0); PLATELET COUNT (AUTO) 87 /CMM (150-450); RED BLOOD CELL COUNT(AUTO) 2.85 MIL/uL (4.0-5.2); WHITE BLOOD COUNT (AUTO) 24.4 K/uL (4.3-11.0)
[2016-09-30 05:45] LABS: CALCIUM, SERUM 7.1 mg/dL (8.5-10.1); CREATININE 5.5 mg/dL (0.6-1.3); PHOSPHORUS 6.6 mg/dL (2.5-4.9); POTASSIUM 3.2 mmol/L (3.5-5.1)
[2016-09-30] MEDS: Potassium Chloride 20 MEQ in IV D5W 1,000 ML IV PRN ×2 (05:53→17:56)
[2016-09-30] MEDS: PIPERACILLIN /TAZOBACTAM 3.375 G in IV D5W 50 ML IV SCH ×4 (05:53→23:47)
[2016-09-30] MEDS: BLOOD SUGAR DIAGNOSTIC 1 EACH STRIP IN SCH ×4 (05:53→23:46)
[2016-09-30 06:08] LABS: ANISOCYTOSIS 1+; PLATELET ESTIMATE DECREASED
[2016-09-30] MEDS: HYDROGEL DRESSING 90 GM TUBE TP SCH (08:13)
[2016-09-30] MEDS: PANTOPRAZOLE 40 MG VIAL IV SCH (08:13)
[2016-09-30] MEDS: Z GUARD REMEDY 2 OZ OINT TP SCH (08:14)
[2016-09-30 09:16] LABS: ABG BASE EXCESS -9.1 mmol/L; ABG HCO3 16.4 mmol/L; ABG PH 7.302 (7.350-7.450); ABG PO2 75.5 mmHg (75.0-100.0); ABG TOTAL HEMOGLOBIN 8.9 G/dL (12.0-16.0); ALLEN TEST Pass; AaDO2 495.3 mmHg; O2Hb 91.7 % (94.0-97.0)
[2016-09-30] MEDS: ACETAMINOPHEN 650 MG/SUPP.RECT RC PRN (15:31)
[2016-09-30] MEDS: INSULIN DETEMIR 100 UNIT/ML CARTRIDGE SQ SCH (22:38)
[2016-10-01] VITALS (60 sets, daily range): BP systolic 94–180; BP diastolic 55–78
[2016-10-01] MEDS: METOCLOPRAMIDE HCL 10 MG/2 ML VIAL IV SCH ×4 (01:30→20:59)
[2016-10-01] MEDS: ALBUTEROL FS 2.5 MG/0.5 ML VIAL.NEB NEB SCH ×6 (03:37→23:06)
[2016-10-01] MEDS: IPRATROPIUM NEB FS 0.5 MG/2.5 ML AMPUL.NEB NEB SCH ×6 (03:37→23:06)
[2016-10-01 04:40] LABS: DIFF TOTAL % 100 %; EOSINOPHILS # (AUTO) 0.1 /CMM (0.0-0.7); EOSINOPHILS % (AUTO) 0.4 % (0.0-6.0); HEMATOCRIT 25 % (33-45); HEMOGLOBIN 8.3 g/dL (11.5-14.8); LYMPHOCYTES # (AUTO) 0.4 /CMM (0.8-4.8); LYMPHOCYTES % (AUTO) 1.5 % (20.0-44.0); MEAN CORPUSCULAR HEMOGLOBIN 30 PG (26.0-33.0); MEAN CORPUSCULAR HGB CONC 34 g/dl (31.0-36.0); MEAN CORPUSCULAR VOLUME 89 fL (82-100); MONOCYTES # (AUTO) 0.2 /CMM (0.1-1.30); MONOCYTES % (AUTO) 0.9 % (2.0-12.0); NEUTROPHILS # (AUTO) 23.9 /CMM (1.8-8.9); NEUTROPHILS % (AUTO) 97.2 % (43.0-81.0); PLATELET COUNT (AUTO) 71 /CMM (150-450); RED BLOOD CELL COUNT(AUTO) 2.76 MIL/uL (4.0-5.2); WHITE BLOOD COUNT (AUTO) 24.6 K/uL (4.3-11.0)
[2016-10-01 05:02] LABS: CALCIUM, SERUM 7.5 mg/dL (8.5-10.1); CREATININE 6.6 mg/dL (0.6-1.3); PHOSPHORUS 6.9 mg/dL (2.5-4.9); POTASSIUM 3.8 mmol/L (3.5-5.1)
[2016-10-01] MEDS ORDERED: IV NS 0.9% 250 ML IV ONE (05:06)
[2016-10-01] MEDS: IV NS 0.9% 250 ML IV PRN (05:19)
[2016-10-01] MEDS: PIPERACILLIN /TAZOBACTAM 3.375 G in IV D5W 50 ML IV SCH ×3 (05:19→18:10)
[2016-10-01] MEDS: BLOOD SUGAR DIAGNOSTIC 1 EACH STRIP IN SCH ×8 (05:19→23:00)
[2016-10-01] MEDS: INSULIN REGULAR, HUMAN 100 UNIT/ML 3 ML VIAL SQ PRN (05:29)
[2016-10-01 05:56] LABS: BASOPHILS % (MANUAL) 0 % (0.0-2.0); EOSINOPHILS % (MANUAL) 0 % (0-4); LYMPHOCYTES % (MANUAL) 2 % (16-48)
[2016-10-01 05:57] LABS: ANISOCYTOSIS 1+; PLATELET ESTIMATE DECREASED
[2016-10-01] MEDS: Potassium Chloride 20 MEQ in IV D5W 1,000 ML IV PRN (06:27)
[2016-10-01] MEDS: HYDROGEL DRESSING 90 GM TUBE TP SCH (08:00)
[2016-10-01] MEDS: PANTOPRAZOLE 40 MG VIAL IV SCH (08:01)
[2016-10-01] MEDS: Z GUARD REMEDY 2 OZ OINT TP SCH (08:01)
[2016-10-01] MEDS ORDERED: INSULIN REGULAR, HUMAN 100 UNIT in IV NS 0.9% 99 ML IV PRN ×2 (10:00)
[2016-10-01 10:30] LABS: ABG BASE EXCESS -12.9 mmol/L; ABG HCO3 12.2 mmol/L; ABG PCO2 25.5 mmHg (35.0-45.0); ABG PH 7.298 (7.350-7.450); ABG PO2 122.4 mmHg (75.0-100.0); ABG TOTAL HEMOGLOBIN 8.5 G/dL (12.0-16.0); ALLEN TEST Pass; AaDO2 169.4 mmHg; O2Hb 94.5 % (94.0-97.0)
[2016-10-01] MEDS ORDERED: IV SET PRIMARY PUMP SET 1 EA INFUS.SET MC ONE ×2 (10:47→21:43)
[2016-10-02] VITALS (41 sets, daily range): BP systolic 104–163; BP diastolic 50–73
[2016-10-02] MEDS: PIPERACILLIN /TAZOBACTAM 3.375 G in IV D5W 50 ML IV SCH ×2 (00:18→06:18)
[2016-10-02 00:53] LABS: CALCIUM, SERUM 7.5 mg/dL (8.5-10.1); CREATININE 4.9 mg/dL (0.6-1.3); POTASSIUM 3.3 mmol/L (3.5-5.1)
[2016-10-02] MEDS: BLOOD SUGAR DIAGNOSTIC 1 EACH STRIP IN SCH ×7 (01:00→17:36)
[2016-10-02] MEDS: METOCLOPRAMIDE HCL 10 MG/2 ML VIAL IV SCH ×4 (02:30→20:00)
[2016-10-02] MEDS: ALBUTEROL FS 2.5 MG/0.5 ML VIAL.NEB NEB SCH ×6 (02:56→23:24)
[2016-10-02] MEDS: IPRATROPIUM NEB FS 0.5 MG/2.5 ML AMPUL.NEB NEB SCH ×6 (02:56→23:24)
[2016-10-02 04:34] LABS: DIFF TOTAL % 100 %; EOSINOPHILS # (AUTO) 0.3 /CMM (0.0-0.7); EOSINOPHILS % (AUTO) 2.5 % (0.0-6.0); HEMATOCRIT 25 % (33-45); HEMOGLOBIN 8.6 g/dL (11.5-14.8); LYMPHOCYTES # (AUTO) 0.5 /CMM (0.8-4.8); LYMPHOCYTES % (AUTO) 4.6 % (20.0-44.0); MEAN CORPUSCULAR HEMOGLOBIN 30 PG (26.0-33.0); MEAN CORPUSCULAR HGB CONC 34 g/dl (31.0-36.0); MEAN CORPUSCULAR VOLUME 87 fL (82-100); MONOCYTES # (AUTO) 0.1 /CMM (0.1-1.30); NEUTROPHILS # (AUTO) 10.5 /CMM (1.8-8.9); NEUTROPHILS % (AUTO) 91.9 % (43.0-81.0); PLATELET COUNT (AUTO) 76 /CMM (150-450); RED BLOOD CELL COUNT(AUTO) 2.87 MIL/uL (4.0-5.2); WHITE BLOOD COUNT (AUTO) 11.4 K/uL (4.3-11.0)
[2016-10-02 05:10] LABS: CALCIUM, SERUM 7.8 mg/dL (8.5-10.1); CREATININE 5.2 mg/dL (0.6-1.3); PHOSPHORUS 4.4 mg/dL (2.5-4.9); POTASSIUM 3.4 mmol/L (3.5-5.1)
[2016-10-02 05:16] LABS: BAND % (MANUAL) 1 % (0.0-5.0); EOSINOPHILS % (MANUAL) 3 % (0-4); LYMPHOCYTES % (MANUAL) 13 % (16-48); PLATELET ESTIMATE DECREASED
[2016-10-02 05:17] LABS: ANISOCYTOSIS 1+
[2016-10-02] MEDS ORDERED: POTASSIUM CL. PREMIX PERIPHER. 50 ML ONE (05:51)
[2016-10-02] MEDS ORDERED: IV SET PRIMARY PUMP SET 1 EA INFUS.SET MC ONE (05:52)
[2016-10-02] MEDS ORDERED: INSULIN REGULAR, HUMAN 100 UNIT in IV NS 0.9% 99 ML IV PRN ×2 (06:00)
[2016-10-02] MEDS: POTASSIUM CL. PREMIX PERIPHER. 50 ML IV SCH ×4 (06:18→10:09)
[2016-10-02] MEDS: PANTOPRAZOLE 40 MG VIAL IV SCH (08:06)
[2016-10-02] MEDS: Z GUARD REMEDY 2 OZ OINT TP SCH (08:08)
[2016-10-02] MEDS: HYDROGEL DRESSING 90 GM TUBE TP SCH (08:08)
[2016-10-02 08:28] LABS: ABG BASE EXCESS -6.3 mmol/L; ABG HCO3 17.4 mmol/L; ABG PH 7.412 (7.350-7.450); ABG PO2 151.5 mmHg (75.0-100.0); ABG TOTAL HEMOGLOBIN 8.7 G/dL (12.0-16.0); ALLEN TEST Pass; AaDO2 137.5 mmHg; O2Hb 96.3 % (94.0-97.0)
[2016-10-02] MEDS ORDERED: INSULIN REGULAR, HUMAN 100 UNIT/ML 3 ML VIAL SQ PRN (11:00)
[2016-10-02] MEDS ORDERED: DEXTROSE 50%-WATER 50 ML DISP.SYRIN IV PRN ×2 (11:00)
[2016-10-02] MEDS: PIPERACILLIN /TAZOBACTAM 2.25 G in IV D5W 50 ML IV SCH ×3 (12:02→23:44)
[2016-10-02] MEDS ORDERED: BLOOD SUGAR DIAGNOSTIC 1 EACH STRIP IN SCH (13:00)
[2016-10-02 14:32] LABS: ABG BASE EXCESS -10.3 mmol/L; ABG PCO2 21.6 mmHg (35.0-45.0); ABG PH 7.398 (7.350-7.450); ABG PO2 193.7 mmHg (75.0-100.0); ABG TOTAL HEMOGLOBIN 9.2 G/dL (12.0-16.0); ALLEN TEST Pass; AaDO2 66.7 mmHg; O2Hb 96.6 % (94.0-97.0)
[2016-10-02] MEDS: ACETAMINOPHEN 650 MG/SUPP.RECT RC PRN (17:12)
[2016-10-02] MEDS: INSULIN REGULAR, HUMAN 100 UNIT/ML 3 ML VIAL SQ PRN ×2 (17:38→21:21)
[2016-10-03] VITALS (45 sets, daily range): BP systolic 92–171; BP diastolic 44–70
[2016-10-03] MEDS: BLOOD SUGAR DIAGNOSTIC 1 EACH STRIP IN SCH ×4 (01:00→21:06)
[2016-10-03] MEDS: INSULIN REGULAR, HUMAN 100 UNIT/ML 3 ML VIAL SQ PRN ×5 (01:54→21:13)
[2016-10-03] MEDS: METOCLOPRAMIDE HCL 10 MG/2 ML VIAL IV SCH ×4 (01:58→20:00)
[2016-10-03] MEDS: IPRATROPIUM NEB FS 0.5 MG/2.5 ML AMPUL.NEB NEB SCH ×6 (03:27→23:30)
[2016-10-03] MEDS: ALBUTEROL FS 2.5 MG/0.5 ML VIAL.NEB NEB SCH ×6 (03:28→23:30)
[2016-10-03 05:15] LABS: DIFF TOTAL % 100 %; EOSINOPHILS # (AUTO) 0.2 /CMM (0.0-0.7); EOSINOPHILS % (AUTO) 1.6 % (0.0-6.0); HEMATOCRIT 25 % (33-45); HEMOGLOBIN 8.6 g/dL (11.5-14.8); LYMPHOCYTES # (AUTO) 0.5 /CMM (0.8-4.8); LYMPHOCYTES % (AUTO) 5.4 % (20.0-44.0); MEAN CORPUSCULAR HEMOGLOBIN 30 PG (26.0-33.0); MEAN CORPUSCULAR HGB CONC 34 g/dl (31.0-36.0); MEAN CORPUSCULAR VOLUME 87 fL (82-100); MONOCYTES # (AUTO) 0.1 /CMM (0.1-1.30); MONOCYTES % (AUTO) 0.7 % (2.0-12.0); NEUTROPHILS % (AUTO) 92.3 % (43.0-81.0); PLATELET COUNT (AUTO) 106 /CMM (150-450); RED BLOOD CELL COUNT(AUTO) 2.87 MIL/uL (4.0-5.2); WHITE BLOOD COUNT (AUTO) 9.8 K/uL (4.3-11.0)
[2016-10-03 05:21] LABS: BILIRUBIN,TOTAL 3.1 mg/dL (0.2-1.0); CREATININE 4.5 mg/dL (0.6-1.3); PHOSPHORUS 6.3 mg/dL (2.5-4.9); POTASSIUM 3.4 mmol/L (3.5-5.1); TOTAL PROTEIN, SERUM 5.7 g/dL (6.4-8.2)
[2016-10-03 05:46] LABS: ALBUMIN 1.3 g/dL (3.4-5.0)
[2016-10-03] MEDS: PIPERACILLIN /TAZOBACTAM 2.25 G in IV D5W 50 ML IV SCH ×4 (05:56→23:30)
[2016-10-03] MEDS ORDERED: POTASSIUM CL. PREMIX PERIPHER. 50 ML IV SCH (07:00)
[2016-10-03] MEDS: HYDROGEL DRESSING 90 GM TUBE TP SCH (09:00)
[2016-10-03] MEDS: Z GUARD REMEDY 2 OZ OINT TP SCH (09:00)
[2016-10-03] MEDS: PANTOPRAZOLE 40 MG VIAL IV SCH (09:00)
[2016-10-03 09:07] LABS: ABG BASE EXCESS -5.6 mmol/L; ABG HCO3 17.1 mmol/L; ABG PCO2 25.1 mmHg (35.0-45.0); ABG PH 7.451 (7.350-7.450); ABG PO2 108.5 mmHg (75.0-100.0); ABG TOTAL HEMOGLOBIN 10.3 G/dL (12.0-16.0); ALLEN TEST Pass; AaDO2 147.8 mmHg; O2Hb 95.8 % (94.0-97.0)
[2016-10-03] MEDS ORDERED: SECONDARY IV SET 1 EA INFUS.SET MC ONE (13:27)
[2016-10-03] MEDS: IV NS 0.9% 250 ML IV PRN (16:30)
[2016-10-04] VITALS (51 sets, daily range): BP systolic 108–167; BP diastolic 46–77
[2016-10-04] MEDS: ALBUTEROL FS 2.5 MG/0.5 ML VIAL.NEB NEB SCH ×8 (00:40→23:08)
[2016-10-04] MEDS: IPRATROPIUM NEB FS 0.5 MG/2.5 ML AMPUL.NEB NEB SCH ×8 (00:40→23:08)
[2016-10-04] MEDS: INSULIN REGULAR, HUMAN 100 UNIT/ML 3 ML VIAL SQ PRN ×5 (01:02→21:14)
[2016-10-04] MEDS: METOCLOPRAMIDE HCL 10 MG/2 ML VIAL IV SCH ×4 (02:00→20:00)
[2016-10-04 04:35] LABS: BASOPHILS % (AUTO) 0.1 % (0.0-2.0); DIFF TOTAL % 100 %; EOSINOPHILS # (AUTO) 0.1 /CMM (0.0-0.7); EOSINOPHILS % (AUTO) 0.7 % (0.0-6.0); HEMATOCRIT 24 % (33-45); HEMOGLOBIN 8.3 g/dL (11.5-14.8); LYMPHOCYTES # (AUTO) 0.8 /CMM (0.8-4.8); LYMPHOCYTES % (AUTO) 7.2 % (20.0-44.0); MEAN CORPUSCULAR HEMOGLOBIN 30 PG (26.0-33.0); MEAN CORPUSCULAR HGB CONC 34 g/dl (31.0-36.0); MEAN CORPUSCULAR VOLUME 87 fL (82-100); MONOCYTES % (AUTO) 0.3 % (2.0-12.0); NEUTROPHILS % (AUTO) 91.7 % (43.0-81.0); PLATELET COUNT (AUTO) 154 /CMM (150-450); RED BLOOD CELL COUNT(AUTO) 2.81 MIL/uL (4.0-5.2); WHITE BLOOD COUNT (AUTO) 10.9 K/uL (4.3-11.0)
[2016-10-04 04:45] LABS: CALCIUM, SERUM 7.7 mg/dL (8.5-10.1); CREATININE 4.3 mg/dL (0.6-1.3); POTASSIUM 3.5 mmol/L (3.5-5.1)
[2016-10-04] MEDS: PIPERACILLIN /TAZOBACTAM 2.25 G in IV D5W 50 ML IV SCH ×3 (06:33→17:04)
[2016-10-04 09:13] LABS: ABG BASE EXCESS -2.8 mmol/L; ABG HCO3 19.6 mmol/L; ABG PCO2 25.9 mmHg (35.0-45.0); ABG PH 7.497 (7.350-7.450); ABG TOTAL HEMOGLOBIN 9.1 G/dL (12.0-16.0); ALLEN TEST Pass; AaDO2 120.4 mmHg; O2Hb 95.2 % (94.0-97.0)
[2016-10-04] MEDS: PANTOPRAZOLE 40 MG VIAL IV SCH (10:18)
[2016-10-04] MEDS: Z GUARD REMEDY 2 OZ OINT TP SCH (10:18)
[2016-10-04] MEDS: HYDROGEL DRESSING 90 GM TUBE TP SCH (10:19)
[2016-10-04] MEDS: BLOOD SUGAR DIAGNOSTIC 1 EACH STRIP IN SCH ×3 (10:20→21:04)
[2016-10-04] MEDS: IV NS 0.9% 250 ML IV PRN (11:34)
[2016-10-05] VITALS (36 sets, daily range): BP systolic 94–148; BP diastolic 51–65
[2016-10-05] MEDS: PIPERACILLIN /TAZOBACTAM 2.25 G in IV D5W 50 ML IV SCH ×5 (00:30→23:53)
[2016-10-05] MEDS: BLOOD SUGAR DIAGNOSTIC 1 EACH STRIP IN SCH ×6 (01:28→21:36)
[2016-10-05] MEDS: INSULIN REGULAR, HUMAN 100 UNIT/ML 3 ML VIAL SQ PRN ×5 (01:48→21:37)
[2016-10-05] MEDS: METOCLOPRAMIDE HCL 10 MG/2 ML VIAL IV SCH ×3 (02:00→21:47)
[2016-10-05] MEDS: IPRATROPIUM NEB FS 0.5 MG/2.5 ML AMPUL.NEB NEB SCH ×6 (03:16→23:31)
[2016-10-05] MEDS: ALBUTEROL FS 2.5 MG/0.5 ML VIAL.NEB NEB SCH ×6 (03:17→23:31)
[2016-10-05 04:49] LABS: BASOPHILS % (AUTO) 0.1 % (0.0-2.0); DIFF TOTAL % 100 %; EOSINOPHILS # (AUTO) 0.1 /CMM (0.0-0.7); EOSINOPHILS % (AUTO) 1.2 % (0.0-6.0); HEMATOCRIT 22 % (33-45); HEMOGLOBIN 7.6 g/dL (11.5-14.8); LYMPHOCYTES # (AUTO) 0.8 /CMM (0.8-4.8); LYMPHOCYTES % (AUTO) 7.4 % (20.0-44.0); MEAN CORPUSCULAR HEMOGLOBIN 30 PG (26.0-33.0); MEAN CORPUSCULAR HGB CONC 35 g/dl (31.0-36.0); MEAN CORPUSCULAR VOLUME 87 fL (82-100); MONOCYTES # (AUTO) 0.2 /CMM (0.1-1.30); MONOCYTES % (AUTO) 1.7 % (2.0-12.0); NEUTROPHILS # (AUTO) 9.3 /CMM (1.8-8.9); NEUTROPHILS % (AUTO) 89.6 % (43.0-81.0); PLATELET COUNT (AUTO) 179 /CMM (150-450); RED BLOOD CELL COUNT(AUTO) 2.54 MIL/uL (4.0-5.2); WHITE BLOOD COUNT (AUTO) 10.3 K/uL (4.3-11.0)
[2016-10-05 05:16] LABS: CALCIUM, SERUM 7.8 mg/dL (8.5-10.1); CREATININE 6.2 mg/dL (0.6-1.3); POTASSIUM 3.9 mmol/L (3.5-5.1)
[2016-10-05 05:28] LABS: PHOSPHORUS 8.5 mg/dL (2.5-4.9)
[2016-10-05] MEDS: PANTOPRAZOLE 40 MG VIAL IV SCH (08:55)
[2016-10-05] MEDS: HYDROGEL DRESSING 90 GM TUBE TP SCH (08:56)
[2016-10-05] MEDS: Z GUARD REMEDY 2 OZ OINT TP SCH (08:56)
[2016-10-05 11:00] LABS: HEMOGLOBIN 8.6 g/dL (11.5-14.8)
[2016-10-05] MEDS ORDERED: METOCLOPRAMIDE HCL 10 MG/2 ML VIAL ONE (21:42)
[2016-10-06] VITALS (59 sets, daily range): BP systolic 116–184; BP diastolic 56–136
[2016-10-06] MEDS: BLOOD SUGAR DIAGNOSTIC 1 EACH STRIP IN SCH ×6 (01:04→21:07)
[2016-10-06] MEDS: INSULIN REGULAR, HUMAN 100 UNIT/ML 3 ML VIAL SQ PRN ×6 (01:05→21:09)
[2016-10-06] MEDS: METOCLOPRAMIDE HCL 10 MG/2 ML VIAL IV SCH ×4 (01:51→19:17)
[2016-10-06] MEDS: ALBUTEROL FS 2.5 MG/0.5 ML VIAL.NEB NEB SCH ×6 (03:38→23:21)
[2016-10-06] MEDS: IPRATROPIUM NEB FS 0.5 MG/2.5 ML AMPUL.NEB NEB SCH ×6 (03:38→23:21)
[2016-10-06 04:53] LABS: DIFF TOTAL % 100 %; EOSINOPHILS # (AUTO) 0.1 /CMM (0.0-0.7); EOSINOPHILS % (AUTO) 0.9 % (0.0-6.0); HEMATOCRIT 21 % (33-45); LYMPHOCYTES # (AUTO) 0.7 /CMM (0.8-4.8); LYMPHOCYTES % (AUTO) 5.6 % (20.0-44.0); MEAN CORPUSCULAR HEMOGLOBIN 30 PG (26.0-33.0); MEAN CORPUSCULAR HGB CONC 34 g/dl (31.0-36.0); MEAN CORPUSCULAR VOLUME 88 fL (82-100); MONOCYTES # (AUTO) 0.2 /CMM (0.1-1.30); MONOCYTES % (AUTO) 1.8 % (2.0-12.0); NEUTROPHILS # (AUTO) 11.5 /CMM (1.8-8.9); NEUTROPHILS % (AUTO) 91.7 % (43.0-81.0); PLATELET COUNT (AUTO) 189 /CMM (150-450); RED BLOOD CELL COUNT(AUTO) 2.37 MIL/uL (4.0-5.2); WHITE BLOOD COUNT (AUTO) 12.5 K/uL (4.3-11.0)
[2016-10-06 05:13] LABS: CALCIUM, SERUM 7.5 mg/dL (8.5-10.1); CREATININE 5.1 mg/dL (0.6-1.3); POTASSIUM 3.8 mmol/L (3.5-5.1)
[2016-10-06] MEDS: PIPERACILLIN /TAZOBACTAM 2.25 G in IV D5W 50 ML IV SCH ×3 (05:50→17:02)
[2016-10-06] MEDS: IV NS 0.9% 250 ML IV PRN (05:55)
[2016-10-06] MEDS: HYDROGEL DRESSING 90 GM TUBE TP SCH (09:37)
[2016-10-06] MEDS: PANTOPRAZOLE 40 MG VIAL IV SCH (09:37)
[2016-10-06] MEDS: Z GUARD REMEDY 2 OZ OINT TP SCH (09:38)
[2016-10-06] MEDS ORDERED: BLOOD IV SET 1 EA INFUS.SET MC ONE (11:42)
[2016-10-06] MEDS ORDERED: IV NS 0.9% 250 ML IV ONE (11:43)
[2016-10-06] MEDS: SEVELAMER CARBONATE 0.8 GM POWD.PACK GT SCH ×2 (13:00→17:02)
[2016-10-06] MEDS ORDERED: ROCURONIUM BROMIDE 50 MG/5 ML ONE (14:16)
[2016-10-06] MEDS: GLYTROL 1,000 ML BAG GT PRN (21:45)
[2016-10-07] VITALS (36 sets, daily range): BP systolic 99–156; BP diastolic 52–141
[2016-10-07] MEDS: PIPERACILLIN /TAZOBACTAM 2.25 G in IV D5W 50 ML IV SCH ×4 (00:35→17:30)
[2016-10-07] MEDS: METOCLOPRAMIDE HCL 10 MG/2 ML VIAL IV SCH ×4 (01:17→19:50)
[2016-10-07] MEDS: BLOOD SUGAR DIAGNOSTIC 1 EACH STRIP IN SCH ×6 (01:23→21:58)
[2016-10-07] MEDS: INSULIN REGULAR, HUMAN 100 UNIT/ML 3 ML VIAL SQ PRN ×6 (01:25→22:01)
[2016-10-07] MEDS: IPRATROPIUM NEB FS 0.5 MG/2.5 ML AMPUL.NEB NEB SCH ×6 (02:53→23:27)
[2016-10-07] MEDS: ALBUTEROL FS 2.5 MG/0.5 ML VIAL.NEB NEB SCH ×6 (02:53→23:27)
[2016-10-07] MEDS ORDERED: SECONDARY IV SET 1 EA INFUS.SET MC ONE (05:06)
[2016-10-07 05:42] LABS: BASOPHILS # (AUTO) 0.1 /CMM (0.0-0.2); BASOPHILS % (AUTO) 0.5 % (0.0-2.0); DIFF TOTAL % 100 %; EOSINOPHILS # (AUTO) 0.2 /CMM (0.0-0.7); EOSINOPHILS % (AUTO) 1.9 % (0.0-6.0); HEMATOCRIT 28 % (33-45); HEMOGLOBIN 9.4 g/dL (11.5-14.8); LYMPHOCYTES # (AUTO) 0.6 /CMM (0.8-4.8); LYMPHOCYTES % (AUTO) 5.5 % (20.0-44.0); MEAN CORPUSCULAR HEMOGLOBIN 30 PG (26.0-33.0); MEAN CORPUSCULAR HGB CONC 34 g/dl (31.0-36.0); MEAN CORPUSCULAR VOLUME 88 fL (82-100); MONOCYTES # (AUTO) 0.4 /CMM (0.1-1.30); MONOCYTES % (AUTO) 4.1 % (2.0-12.0); NEUTROPHILS # (AUTO) 9.6 /CMM (1.8-8.9); PLATELET COUNT (AUTO) 145 /CMM (150-450); RED BLOOD CELL COUNT(AUTO) 3.14 MIL/uL (4.0-5.2); WHITE BLOOD COUNT (AUTO) 10.9 K/uL (4.3-11.0)
[2016-10-07 06:03] LABS: CALCIUM, SERUM 7.4 mg/dL (8.5-10.1); CREATININE 6.3 mg/dL (0.6-1.3); POTASSIUM 4.1 mmol/L (3.5-5.1)
[2016-10-07] MEDS: SEVELAMER CARBONATE 0.8 GM POWD.PACK GT SCH ×3 (08:06→17:30)
[2016-10-07] MEDS: PANTOPRAZOLE 40 MG VIAL IV SCH (08:19)
[2016-10-07] MEDS: HYDROGEL DRESSING 90 GM TUBE TP SCH (08:22)
[2016-10-07] MEDS: Z GUARD REMEDY 2 OZ OINT TP SCH (08:23)
[2016-10-07] MEDS: BACITRACIN ZINC OINT PACKET 1 EA PACKET TP SCH ×2 (08:43→17:09)
[2016-10-07] MEDS: HYDROGEN PEROXIDE 480 ML BOTTLE TP PRN (11:55)
[2016-10-07] MEDS ORDERED: MIDODRINE HCL (5MG) 5 MG TABLET PO SCH (13:00)
[2016-10-08] VITALS (48 sets, daily range): BP systolic 106–159; BP diastolic 51–74
[2016-10-08] MEDS: PIPERACILLIN /TAZOBACTAM 2.25 G in IV D5W 50 ML IV SCH ×4 (01:17→18:02)
[2016-10-08] MEDS: BLOOD SUGAR DIAGNOSTIC 1 EACH STRIP IN SCH ×6 (01:18→22:02)
[2016-10-08] MEDS: INSULIN REGULAR, HUMAN 100 UNIT/ML 3 ML VIAL SQ PRN ×6 (01:21→22:02)
[2016-10-08] MEDS: METOCLOPRAMIDE HCL 10 MG/2 ML VIAL IV SCH ×4 (01:29→20:31)
[2016-10-08] MEDS: ALBUTEROL FS 2.5 MG/0.5 ML VIAL.NEB NEB SCH ×6 (03:12→23:53)
[2016-10-08] MEDS: IPRATROPIUM NEB FS 0.5 MG/2.5 ML AMPUL.NEB NEB SCH ×6 (03:12→23:53)
[2016-10-08 04:46] LABS: BASOPHILS % (AUTO) 0.1 % (0.0-2.0); DIFF TOTAL % 100 %; EOSINOPHILS # (AUTO) 0.1 /CMM (0.0-0.7); EOSINOPHILS % (AUTO) 2.4 % (0.0-6.0); HEMATOCRIT 30 % (33-45); HEMOGLOBIN 10.2 g/dL (11.5-14.8); LYMPHOCYTES # (AUTO) 0.6 /CMM (0.8-4.8); LYMPHOCYTES % (AUTO) 10.5 % (20.0-44.0); MEAN CORPUSCULAR HEMOGLOBIN 30 PG (26.0-33.0); MEAN CORPUSCULAR HGB CONC 34 g/dl (31.0-36.0); MEAN CORPUSCULAR VOLUME 87 fL (82-100); MONOCYTES # (AUTO) 0.1 /CMM (0.1-1.30); MONOCYTES % (AUTO) 2.1 % (2.0-12.0); NEUTROPHILS # (AUTO) 4.8 /CMM (1.8-8.9); NEUTROPHILS % (AUTO) 84.9 % (43.0-81.0); PLATELET COUNT (AUTO) 174 /CMM (150-450); RED BLOOD CELL COUNT(AUTO) 3.44 MIL/uL (4.0-5.2); WHITE BLOOD COUNT (AUTO) 5.6 K/uL (4.3-11.0)
[2016-10-08 05:06] LABS: CALCIUM, SERUM 7.8 mg/dL (8.5-10.1); CREATININE 5.1 mg/dL (0.6-1.3); POTASSIUM 4.2 mmol/L (3.5-5.1)
[2016-10-08 05:08] LABS: INR 1.06 (0.87-1.13); PROTHROMBIN TIME 11.5 SECS (9.5-12.7)
[2016-10-08] MEDS: SEVELAMER CARBONATE 0.8 GM POWD.PACK GT SCH ×3 (08:00→18:00)
[2016-10-08] MEDS: PANTOPRAZOLE 40 MG VIAL IV SCH (09:47)
[2016-10-08] MEDS: HYDROGEN PEROXIDE 480 ML BOTTLE TP PRN ×2 (09:48→18:00)
[2016-10-08] MEDS: Z GUARD REMEDY 2 OZ OINT TP SCH (09:48)
[2016-10-08] MEDS: HYDROGEL DRESSING 90 GM TUBE TP SCH (09:48)
[2016-10-08] MEDS: BACITRACIN ZINC OINT PACKET 1 EA PACKET TP SCH ×2 (09:51→18:00)
[2016-10-08] MEDS ORDERED: LIDOCAINE HCL/PF 1% 30 ML SDV ONE (13:48)
[2016-10-08] MEDS ORDERED: LIDOCAINE 1%-EPI 1:100,000 20 ML VIAL ONE (14:03)
[2016-10-08] MEDS ORDERED: ANESTHESIA TRAY IN PYXIS 1 EA TRAY MC ONE (15:23)
[2016-10-08] MEDS ORDERED: FENTANYL PF 100MCG/2ML AMPUL ONE (15:55)
[2016-10-08] MEDS ORDERED: ROCURONIUM BROMIDE 50 MG/5 ML ONE (15:55)
[2016-10-08] MEDS: IV NS 0.9% 250 ML IV PRN (18:00)
[2016-10-09] VITALS (38 sets, daily range): BP systolic 101–167; BP diastolic 53–72
[2016-10-09] MEDS: PIPERACILLIN /TAZOBACTAM 2.25 G in IV D5W 50 ML IV SCH ×5 (00:28→23:10)
[2016-10-09] MEDS: BLOOD SUGAR DIAGNOSTIC 1 EACH STRIP IN SCH ×6 (01:43→21:25)
[2016-10-09] MEDS: INSULIN REGULAR, HUMAN 100 UNIT/ML 3 ML VIAL SQ PRN ×5 (01:44→21:26)
[2016-10-09] MEDS: METOCLOPRAMIDE HCL 10 MG/2 ML VIAL IV SCH ×4 (01:46→19:54)
[2016-10-09] MEDS: ALBUTEROL FS 2.5 MG/0.5 ML VIAL.NEB NEB SCH ×6 (03:40→23:21)
[2016-10-09] MEDS: IPRATROPIUM NEB FS 0.5 MG/2.5 ML AMPUL.NEB NEB SCH ×6 (03:40→23:21)
[2016-10-09 04:38] LABS: BASOPHILS % (AUTO) 0.1 % (0.0-2.0); DIFF TOTAL % 100 %; EOSINOPHILS # (AUTO) 0.1 /CMM (0.0-0.7); EOSINOPHILS % (AUTO) 0.8 % (0.0-6.0); HEMATOCRIT 27 % (33-45); HEMOGLOBIN 9.2 g/dL (11.5-14.8); LYMPHOCYTES # (AUTO) 0.5 /CMM (0.8-4.8); LYMPHOCYTES % (AUTO) 4.7 % (20.0-44.0); MEAN CORPUSCULAR HEMOGLOBIN 30 PG (26.0-33.0); MEAN CORPUSCULAR HGB CONC 35 g/dl (31.0-36.0); MEAN CORPUSCULAR VOLUME 87 fL (82-100); MONOCYTES # (AUTO) 0.6 /CMM (0.1-1.30); MONOCYTES % (AUTO) 5.2 % (2.0-12.0); NEUTROPHILS # (AUTO) 10.1 /CMM (1.8-8.9); NEUTROPHILS % (AUTO) 89.2 % (43.0-81.0); PLATELET COUNT (AUTO) 162 /CMM (150-450); RED BLOOD CELL COUNT(AUTO) 3.06 MIL/uL (4.0-5.2); WHITE BLOOD COUNT (AUTO) 11.3 K/uL (4.3-11.0)
[2016-10-09 04:50] LABS: CALCIUM, SERUM 7.3 mg/dL (8.5-10.1); CREATININE 6.3 mg/dL (0.6-1.3); POTASSIUM 4.2 mmol/L (3.5-5.1)
[2016-10-09] MEDS: PANTOPRAZOLE 40 MG VIAL IV SCH (08:38)
[2016-10-09] MEDS: SEVELAMER CARBONATE 0.8 GM POWD.PACK GT SCH ×3 (08:38→17:00)
[2016-10-09] MEDS: HYDROGEN PEROXIDE 480 ML BOTTLE TP PRN (08:39)
[2016-10-09] MEDS: BACITRACIN ZINC OINT PACKET 1 EA PACKET TP SCH ×2 (08:40→16:59)
[2016-10-09] MEDS: HYDROGEL DRESSING 90 GM TUBE TP SCH (08:40)
[2016-10-09] MEDS: Z GUARD REMEDY 2 OZ OINT TP SCH (08:40)
[2016-10-09 10:49] LABS: ABG BASE EXCESS -3.6 mmol/L; ABG HCO3 19.9 mmol/L; ABG NOTIFIED BY EG; ABG PCO2 30.4 mmHg (35.0-45.0); ABG PH 7.434 (7.350-7.450); ABG PO2 99.7 mmHg (75.0-100.0); ABG TOTAL HEMOGLOBIN 9.7 G/dL (12.0-16.0); ALLEN TEST Pass; AaDO2 64.1 mmHg; O2Hb 94.6 % (94.0-97.0)
[2016-10-09] MEDS: GLYTROL 1,000 ML BAG GT PRN (11:09)
[2016-10-09] MEDS: IV NS 0.9% 250 ML IV PRN (18:22)
[2016-10-10] VITALS (12 sets, daily range): BP systolic 99–163; BP diastolic 43–71
[2016-10-10] MEDS: BLOOD SUGAR DIAGNOSTIC 1 EACH STRIP IN SCH ×6 (02:46→21:44)
[2016-10-10] MEDS: METOCLOPRAMIDE HCL 10 MG/2 ML VIAL IV SCH ×4 (02:46→21:46)
[2016-10-10] MEDS: INSULIN REGULAR, HUMAN 100 UNIT/ML 3 ML VIAL SQ PRN ×6 (03:01→21:55)
[2016-10-10] MEDS: IPRATROPIUM NEB FS 0.5 MG/2.5 ML AMPUL.NEB NEB SCH ×6 (03:26→23:03)
[2016-10-10] MEDS: ALBUTEROL FS 2.5 MG/0.5 ML VIAL.NEB NEB SCH ×6 (03:26→23:03)
[2016-10-10] MEDS: PIPERACILLIN /TAZOBACTAM 2.25 G in IV D5W 50 ML IV SCH ×3 (06:18→17:18)
[2016-10-10] MEDS: PANTOPRAZOLE 40 MG VIAL IV SCH (09:10)
[2016-10-10] MEDS: SEVELAMER CARBONATE 0.8 GM POWD.PACK GT SCH ×3 (09:10→17:24)
[2016-10-10] MEDS: HYDROGEL DRESSING 90 GM TUBE TP SCH (09:12)
[2016-10-10] MEDS: BACITRACIN ZINC OINT PACKET 1 EA PACKET TP SCH ×2 (09:13→17:24)
[2016-10-10] MEDS: Z GUARD REMEDY 2 OZ OINT TP SCH (09:13)
[2016-10-11] VITALS (8 sets, daily range): BP systolic 145–159; BP diastolic 67–78
[2016-10-11] MEDS ORDERED: IV NS 0.9% 250 ML IV ONE (00:17)
[2016-10-11] MEDS ORDERED: IV SET PRIMARY PUMP SET 1 EA INFUS.SET MC ONE (00:17)
[2016-10-11] MEDS ORDERED: SECONDARY IV SET 1 EA INFUS.SET MC ONE (00:18)
[2016-10-11] MEDS: PIPERACILLIN /TAZOBACTAM 2.25 G in IV D5W 50 ML IV SCH ×4 (00:34→17:36)
[2016-10-11] MEDS: GLYTROL 1,000 ML BAG GT PRN (00:34)
[2016-10-11] MEDS: BLOOD SUGAR DIAGNOSTIC 1 EACH STRIP IN SCH ×6 (01:19→21:00)
[2016-10-11] MEDS: METOCLOPRAMIDE HCL 10 MG/2 ML VIAL IV SCH ×4 (01:19→20:08)
[2016-10-11] MEDS: INSULIN REGULAR, HUMAN 100 UNIT/ML 3 ML VIAL SQ PRN ×5 (01:27→17:14)
[2016-10-11] MEDS: IPRATROPIUM NEB FS 0.5 MG/2.5 ML AMPUL.NEB NEB SCH ×6 (03:30→23:17)
[2016-10-11] MEDS: ALBUTEROL FS 2.5 MG/0.5 ML VIAL.NEB NEB SCH ×6 (03:30→23:17)
[2016-10-11] MEDS: SEVELAMER CARBONATE 0.8 GM POWD.PACK GT SCH ×3 (09:07→17:37)
[2016-10-11] MEDS: PANTOPRAZOLE 40 MG VIAL IV SCH ×2 (09:07→09:21)
[2016-10-11] MEDS: BACITRACIN ZINC OINT PACKET 1 EA PACKET TP SCH ×2 (09:29→17:09)
[2016-10-11] MEDS: HYDROGEL DRESSING 90 GM TUBE TP SCH (09:31)
[2016-10-11] MEDS: Z GUARD REMEDY 2 OZ OINT TP SCH (09:31)
[2016-10-12] VITALS (7 sets, daily range): BP systolic 119–158; BP diastolic 59–73
[2016-10-12] MEDS: PIPERACILLIN /TAZOBACTAM 2.25 G in IV D5W 50 ML IV SCH ×4 (00:31→17:38)
[2016-10-12] MEDS: INSULIN REGULAR, HUMAN 100 UNIT/ML 3 ML VIAL SQ PRN ×6 (00:40→20:57)
[2016-10-12] MEDS: BLOOD SUGAR DIAGNOSTIC 1 EACH STRIP IN SCH ×7 (00:44→20:56)
[2016-10-12] MEDS: METOCLOPRAMIDE HCL 10 MG/2 ML VIAL IV SCH ×4 (01:46→19:43)
[2016-10-12] MEDS: GLYTROL 1,000 ML BAG GT PRN (01:50)
[2016-10-12] MEDS: ALBUTEROL FS 2.5 MG/0.5 ML VIAL.NEB NEB SCH ×6 (02:54→23:21)
[2016-10-12] MEDS: IPRATROPIUM NEB FS 0.5 MG/2.5 ML AMPUL.NEB NEB SCH ×6 (02:54→23:21)
[2016-10-12 06:48] LABS: BASOPHILS # (AUTO) 0.1 /CMM (0.0-0.2); BASOPHILS % (AUTO) 0.5 % (0.0-2.0); DIFF TOTAL % 100 %; EOSINOPHILS # (AUTO) 0.3 /CMM (0.0-0.7); EOSINOPHILS % (AUTO) 3.2 % (0.0-6.0); HEMATOCRIT 26 % (33-45); LYMPHOCYTES # (AUTO) 0.5 /CMM (0.8-4.8); LYMPHOCYTES % (AUTO) 5.5 % (20.0-44.0); MEAN CORPUSCULAR HEMOGLOBIN 30 PG (26.0-33.0); MEAN CORPUSCULAR HGB CONC 34 g/dl (31.0-36.0); MEAN CORPUSCULAR VOLUME 89 fL (82-100); MONOCYTES % (AUTO) 10.3 % (2.0-12.0); NEUTROPHILS # (AUTO) 8.1 /CMM (1.8-8.9); NEUTROPHILS % (AUTO) 80.5 % (43.0-81.0); PLATELET COUNT (AUTO) 230 /CMM (150-450); RED BLOOD CELL COUNT(AUTO) 2.97 MIL/uL (4.0-5.2); WHITE BLOOD COUNT (AUTO) 10.1 K/uL (4.3-11.0)
[2016-10-12 06:55] LABS: CALCIUM, SERUM 7.6 mg/dL (8.5-10.1); CREATININE 5.5 mg/dL (0.6-1.3); POTASSIUM 4.7 mmol/L (3.5-5.1)
[2016-10-12] MEDS: SEVELAMER CARBONATE 0.8 GM POWD.PACK GT SCH ×3 (08:16→17:28)
[2016-10-12] MEDS: BACITRACIN ZINC OINT PACKET 1 EA PACKET TP SCH ×2 (08:27→17:27)
[2016-10-12] MEDS: HYDROGEL DRESSING 90 GM TUBE TP SCH (08:28)
[2016-10-12] MEDS: Z GUARD REMEDY 2 OZ OINT TP SCH (08:28)
[2016-10-12] MEDS: PANTOPRAZOLE 40 MG VIAL IV SCH ×2 (08:33→08:34)
[2016-10-12] MEDS: ACETAMINOPHEN 325 MG TABLET PO PRN (13:20)
[2016-10-13] MEDS: PIPERACILLIN /TAZOBACTAM 2.25 G in IV D5W 50 ML IV SCH ×2 (00:40→05:43)
[2016-10-13] MEDS: GLYTROL 1,000 ML BAG GT PRN ×2 (00:43→22:24)
[2016-10-13] MEDS: INSULIN REGULAR, HUMAN 100 UNIT/ML 3 ML VIAL SQ PRN ×6 (00:57→21:15)
[2016-10-13] MEDS: BLOOD SUGAR DIAGNOSTIC 1 EACH STRIP IN SCH ×6 (01:57→21:13)
[2016-10-13] MEDS: METOCLOPRAMIDE HCL 10 MG/2 ML VIAL IV SCH ×4 (01:57→20:12)
[2016-10-13] MEDS: ALBUTEROL FS 2.5 MG/0.5 ML VIAL.NEB NEB SCH ×6 (03:11→22:48)
[2016-10-13] MEDS: IPRATROPIUM NEB FS 0.5 MG/2.5 ML AMPUL.NEB NEB SCH ×6 (03:12→22:48)
[2016-10-13] MEDS ORDERED: IV SET PRIMARY PUMP SET 1 EA INFUS.SET MC ONE (03:15)
[2016-10-13] MEDS: IV NS 0.9% 250 ML IV PRN (03:26)
[2016-10-13 04:32] VITALS: BP 145/68
[2016-10-13 07:00] LABS: DIFF TOTAL % 100 %; EOSINOPHILS # (AUTO) 0.4 /CMM (0.0-0.7); EOSINOPHILS % (AUTO) 2.9 % (0.0-6.0); HEMATOCRIT 27 % (33-45); HEMOGLOBIN 9.1 g/dL (11.5-14.8); LYMPHOCYTES # (AUTO) 0.6 /CMM (0.8-4.8); LYMPHOCYTES % (AUTO) 4.4 % (20.0-44.0); MEAN CORPUSCULAR HEMOGLOBIN 30 PG (26.0-33.0); MEAN CORPUSCULAR HGB CONC 34 g/dl (31.0-36.0); MEAN CORPUSCULAR VOLUME 89 fL (82-100); MONOCYTES % (AUTO) 7.5 % (2.0-12.0); NEUTROPHILS # (AUTO) 11.1 /CMM (1.8-8.9); NEUTROPHILS % (AUTO) 85.2 % (43.0-81.0); PLATELET COUNT (AUTO) 244 /CMM (150-450); RED BLOOD CELL COUNT(AUTO) 3.01 MIL/uL (4.0-5.2)
[2016-10-13 07:40] LABS: CALCIUM, SERUM 7.9 mg/dL (8.5-10.1); CREATININE 3.7 mg/dL (0.6-1.3); POTASSIUM 3.6 mmol/L (3.5-5.1)
[2016-10-13 08:00] VITALS: BP 123/63
[2016-10-13] MEDS: SEVELAMER CARBONATE 0.8 GM POWD.PACK GT SCH ×3 (08:17→16:59)
[2016-10-13] MEDS: PANTOPRAZOLE 40 MG VIAL IV SCH (08:17)
[2016-10-13] MEDS: HYDROGEL DRESSING 90 GM TUBE TP SCH (08:25)
[2016-10-13] MEDS: Z GUARD REMEDY 2 OZ OINT TP SCH (08:25)
[2016-10-13] MEDS: BACITRACIN ZINC OINT PACKET 1 EA PACKET TP SCH ×2 (10:46→16:59)
[2016-10-13] MEDS ORDERED: SECONDARY IV SET 1 EA INFUS.SET MC ONE (10:48)
[2016-10-13] MEDS: CEFTRIAXONE 1 G in IV D5W 50 ML IV SCH (10:49)
[2016-10-13 12:00] VITALS: BP 146/74
[2016-10-13 12:29] LABS: HEPATITIS C VIRUS AB 0.3 s/co ratio (0.0-0.9)
[2016-10-13 16:00] VITALS: BP 158/77
[2016-10-13 20:00] VITALS: BP 127/63
[2016-10-14] VITALS: BP 160/76
[2016-10-14] MEDS: BLOOD SUGAR DIAGNOSTIC 1 EACH STRIP IN SCH ×4 (01:28→17:19)
[2016-10-14] MEDS: INSULIN REGULAR, HUMAN 100 UNIT/ML 3 ML VIAL SQ PRN (01:30)
[2016-10-14] MEDS: METOCLOPRAMIDE HCL 10 MG/2 ML VIAL IV SCH ×4 (02:17→20:13)
[2016-10-14] MEDS ORDERED: hydrALAZINE HCL 10 MG TABLET ONE (02:23)
[2016-10-14] MEDS ORDERED: hydrALAZINE HCL 10 MG TABLET GT PRN (02:30)
[2016-10-14] MEDS ORDERED: INSULIN REGULAR, HUMAN 100 UNIT/ML 10 ML VIAL SQ ONE (03:00)
[2016-10-14] MEDS: ALBUTEROL FS 2.5 MG/0.5 ML VIAL.NEB NEB SCH ×6 (03:06→22:59)
[2016-10-14] MEDS: IPRATROPIUM NEB FS 0.5 MG/2.5 ML AMPUL.NEB NEB SCH ×6 (03:06→22:58)
[2016-10-14] MEDS ORDERED: *INSULIN REGULAR(HUMULIN R)HUM 100 UNIT/ML VIAL SQ PRN (03:30)
[2016-10-14] MEDS ORDERED: DEXTROSE 50%-WATER 50 ML DISP.SYRIN IV PRN (03:30)
[2016-10-14 04:00] VITALS: BP 165/77
[2016-10-14] MEDS: INSULIN REGULAR, HUMAN 100 UNIT/ML 3 ML VIAL SQ SCH ×3 (07:06→17:20)
[2016-10-14 08:00] VITALS: BP 161/78
[2016-10-14] MEDS: PANTOPRAZOLE 40 MG VIAL IV SCH (09:16)
[2016-10-14] MEDS: SEVELAMER CARBONATE 0.8 GM POWD.PACK GT SCH ×3 (09:17→17:22)
[2016-10-14] MEDS: HYDROGEL DRESSING 90 GM TUBE TP SCH (09:19)
[2016-10-14] MEDS: Z GUARD REMEDY 2 OZ OINT TP SCH (09:20)
[2016-10-14] MEDS: BACITRACIN ZINC OINT PACKET 1 EA PACKET TP SCH ×2 (09:22→17:16)
[2016-10-14] MEDS: CEFTRIAXONE 1 G in IV D5W 50 ML IV SCH (10:48)
[2016-10-14] MEDS: INSULIN DETEMIR 100 UNIT/ML CARTRIDGE SQ SCH ×2 (10:59→21:34)
[2016-10-14 11:39] VITALS: BP 133/68
[2016-10-14 16:00] VITALS: BP 156/80
[2016-10-14 20:00] VITALS: BP 120/58
[2016-10-14] MEDS: GLYTROL 1,000 ML BAG GT PRN (20:13)
[2016-10-14] MEDS: IV NS 0.9% 250 ML IV PRN (21:45)
[2016-10-15] VITALS (7 sets, daily range): BP systolic 128–154; BP diastolic 59–65
[2016-10-15] MEDS: BLOOD SUGAR DIAGNOSTIC 1 EACH STRIP IN SCH ×5 (00:20→23:50)
[2016-10-15] MEDS: INSULIN REGULAR, HUMAN 100 UNIT/ML 3 ML VIAL SQ SCH ×5 (00:37→23:54)
[2016-10-15] MEDS: METOCLOPRAMIDE HCL 10 MG/2 ML VIAL IV SCH ×4 (02:05→18:35)
[2016-10-15] MEDS: IPRATROPIUM NEB FS 0.5 MG/2.5 ML AMPUL.NEB NEB SCH ×6 (03:16→23:36)
[2016-10-15] MEDS: ALBUTEROL FS 2.5 MG/0.5 ML VIAL.NEB NEB SCH ×6 (03:16→23:36)
[2016-10-15] MEDS: SEVELAMER CARBONATE 0.8 GM POWD.PACK GT SCH ×4 (08:00→17:19)
[2016-10-15] MEDS: PANTOPRAZOLE 40 MG VIAL IV SCH (08:22)
[2016-10-15] MEDS: Z GUARD REMEDY 2 OZ OINT TP SCH (08:24)
[2016-10-15] MEDS: HYDROGEL DRESSING 90 GM TUBE TP SCH (08:24)
[2016-10-15] MEDS: HYDROGEN PEROXIDE 480 ML BOTTLE TP PRN ×2 (08:24→17:19)
[2016-10-15] MEDS: BACITRACIN ZINC OINT PACKET 1 EA PACKET TP SCH ×2 (08:27→17:19)
[2016-10-15] MEDS: CEFTRIAXONE 1 G in IV D5W 50 ML IV SCH (09:03)
[2016-10-15] MEDS: RENAL NOVASOURCE 1,000 ML BOTTLE GT PRN (15:30)
[2016-10-15] MEDS: INSULIN DETEMIR 100 UNIT/ML CARTRIDGE SQ SCH (20:40)
[2016-10-15] MEDS ORDERED: INSULIN DETEMIR 100 UNIT/ML CARTRIDGE SQ SCH (21:00)
[2016-10-16] VITALS (7 sets, daily range): BP systolic 131–173; BP diastolic 61–76
[2016-10-16] MEDS: METOCLOPRAMIDE HCL 10 MG/2 ML VIAL IV SCH ×4 (01:24→21:21)
[2016-10-16] MEDS: IPRATROPIUM NEB FS 0.5 MG/2.5 ML AMPUL.NEB NEB SCH ×6 (02:59→22:52)
[2016-10-16] MEDS: ALBUTEROL FS 2.5 MG/0.5 ML VIAL.NEB NEB SCH ×6 (02:59→22:52)
[2016-10-16] MEDS: BLOOD SUGAR DIAGNOSTIC 1 EACH STRIP IN SCH ×3 (05:55→17:01)
[2016-10-16] MEDS: INSULIN REGULAR, HUMAN 100 UNIT/ML 3 ML VIAL SQ SCH ×3 (05:59→17:07)
[2016-10-16 06:51] LABS: BASOPHILS # (AUTO) 0.1 /CMM (0.0-0.2); BASOPHILS % (AUTO) 0.4 % (0.0-2.0); DIFF TOTAL % 100 %; HEMATOCRIT 28 % (33-45); HEMOGLOBIN 9.4 g/dL (11.5-14.8); LYMPHOCYTES # (AUTO) 0.9 /CMM (0.8-4.8); LYMPHOCYTES % (AUTO) 6.1 % (20.0-44.0); MEAN CORPUSCULAR HEMOGLOBIN 30 PG (26.0-33.0); MEAN CORPUSCULAR HGB CONC 34 g/dl (31.0-36.0); MEAN CORPUSCULAR VOLUME 88 fL (82-100); MONOCYTES # (AUTO) 1.2 /CMM (0.1-1.30); NEUTROPHILS # (AUTO) 12.6 /CMM (1.8-8.9); NEUTROPHILS % (AUTO) 85.5 % (43.0-81.0); PLATELET COUNT (AUTO) 302 /CMM (150-450); RED BLOOD CELL COUNT(AUTO) 3.19 MIL/uL (4.0-5.2); WHITE BLOOD COUNT (AUTO) 14.7 K/uL (4.3-11.0)
[2016-10-16 07:18] LABS: CALCIUM, SERUM 8.5 mg/dL (8.5-10.1); CREATININE 3.3 mg/dL (0.6-1.3); PHOSPHORUS 4.6 mg/dL (2.5-4.9); POTASSIUM 3.2 mmol/L (3.5-5.1)
[2016-10-16] MEDS: PANTOPRAZOLE 40 MG VIAL IV SCH (08:47)
[2016-10-16] MEDS: SEVELAMER CARBONATE 0.8 GM POWD.PACK GT SCH ×3 (08:48→17:01)
[2016-10-16] MEDS: Z GUARD REMEDY 2 OZ OINT TP SCH (08:55)
[2016-10-16] MEDS: BACITRACIN ZINC OINT PACKET 1 EA PACKET TP SCH ×2 (08:58→17:01)
[2016-10-16] MEDS: INSULIN DETEMIR 100 UNIT/ML CARTRIDGE SQ SCH ×2 (09:01→21:36)
[2016-10-16] MEDS: CEFTRIAXONE 1 G in IV D5W 50 ML IV SCH (09:06)
[2016-10-16] MEDS: RENAL NOVASOURCE 1,000 ML BOTTLE GT PRN (21:32)
[2016-10-17] VITALS: BP 155/67
[2016-10-17] MEDS: BLOOD SUGAR DIAGNOSTIC 1 EACH STRIP IN SCH ×5 (00:21→23:39)
[2016-10-17] MEDS: INSULIN REGULAR, HUMAN 100 UNIT/ML 3 ML VIAL SQ SCH ×5 (00:23→23:40)
[2016-10-17] MEDS: METOCLOPRAMIDE HCL 10 MG/2 ML VIAL IV SCH ×4 (02:26→21:28)
[2016-10-17] MEDS ORDERED: IV SET PRIMARY PUMP SET 1 EA INFUS.SET MC ONE (02:27)
[2016-10-17] MEDS ORDERED: IV NS 0.9% 250 ML IV ONE (02:28)
[2016-10-17] MEDS: IV NS 0.9% 250 ML IV PRN (02:33)
[2016-10-17] MEDS: ALBUTEROL FS 2.5 MG/0.5 ML VIAL.NEB NEB SCH ×6 (02:50→22:55)
[2016-10-17] MEDS: IPRATROPIUM NEB FS 0.5 MG/2.5 ML AMPUL.NEB NEB SCH ×6 (02:50→22:55)
[2016-10-17 04:00] VITALS: BP 145/86
[2016-10-17 07:41] LABS: BASOPHILS # (AUTO) 0.1 /CMM (0.0-0.2); BASOPHILS % (AUTO) 0.4 % (0.0-2.0); DIFF TOTAL % 100 %; EOSINOPHILS % (AUTO) 0.2 % (0.0-6.0); HEMATOCRIT 23 % (33-45); HEMOGLOBIN 7.9 g/dL (11.5-14.8); LYMPHOCYTES # (AUTO) 0.8 /CMM (0.8-4.8); LYMPHOCYTES % (AUTO) 5.3 % (20.0-44.0); MEAN CORPUSCULAR HEMOGLOBIN 30 PG (26.0-33.0); MEAN CORPUSCULAR HGB CONC 34 g/dl (31.0-36.0); MEAN CORPUSCULAR VOLUME 88 fL (82-100); MONOCYTES # (AUTO) 1.1 /CMM (0.1-1.30); MONOCYTES % (AUTO) 7.1 % (2.0-12.0); NEUTROPHILS # (AUTO) 13.4 /CMM (1.8-8.9); PLATELET COUNT (AUTO) 278 /CMM (150-450); RED BLOOD CELL COUNT(AUTO) 2.63 MIL/uL (4.0-5.2); WHITE BLOOD COUNT (AUTO) 15.4 K/uL (4.3-11.0)
[2016-10-17 08:00] VITALS: BP 149/68
[2016-10-17] MEDS: PANTOPRAZOLE 40 MG VIAL IV SCH (09:20)
[2016-10-17] MEDS: Z GUARD REMEDY 2 OZ OINT TP SCH (09:31)
[2016-10-17] MEDS: SEVELAMER CARBONATE 0.8 GM POWD.PACK GT SCH ×3 (09:31→17:30)
[2016-10-17] MEDS: BACITRACIN ZINC OINT PACKET 1 EA PACKET TP SCH ×2 (09:31→17:29)
[2016-10-17] MEDS: INSULIN DETEMIR 100 UNIT/ML CARTRIDGE SQ SCH ×2 (09:32→21:00)
[2016-10-17] MEDS: CEFTRIAXONE 1 G in IV D5W 50 ML IV SCH (09:33)
[2016-10-17 10:25] LABS: CALCIUM, SERUM 8.3 mg/dL (8.5-10.1); POTASSIUM 3.4 mmol/L (3.5-5.1)
[2016-10-17 12:00] VITALS: BP 155/65
[2016-10-17 16:00] VITALS: BP 161/68
[2016-10-17 20:00] VITALS: BP 135/69
[2016-10-18] VITALS (7 sets, daily range): BP systolic 112–148; BP diastolic 49–86
[2016-10-18] MEDS: METOCLOPRAMIDE HCL 10 MG/2 ML VIAL IV SCH ×4 (01:50→21:29)
[2016-10-18] MEDS: IPRATROPIUM NEB FS 0.5 MG/2.5 ML AMPUL.NEB NEB SCH ×6 (04:31→23:31)
[2016-10-18] MEDS: ALBUTEROL FS 2.5 MG/0.5 ML VIAL.NEB NEB SCH ×6 (04:31→23:31)
[2016-10-18] MEDS: INSULIN REGULAR, HUMAN 100 UNIT/ML 3 ML VIAL SQ SCH ×3 (06:00→18:32)
[2016-10-18] MEDS: BLOOD SUGAR DIAGNOSTIC 1 EACH STRIP IN SCH ×3 (06:24→18:31)
[2016-10-18 06:27] LABS: BASOPHILS # (AUTO) 0.1 /CMM (0.0-0.2); BASOPHILS % (AUTO) 0.3 % (0.0-2.0); DIFF TOTAL % 100 %; HEMATOCRIT 24 % (33-45); LYMPHOCYTES # (AUTO) 1.1 /CMM (0.8-4.8); LYMPHOCYTES % (AUTO) 6.8 % (20.0-44.0); MEAN CORPUSCULAR HEMOGLOBIN 30 PG (26.0-33.0); MEAN CORPUSCULAR HGB CONC 34 g/dl (31.0-36.0); MEAN CORPUSCULAR VOLUME 87 fL (82-100); MONOCYTES # (AUTO) 1.1 /CMM (0.1-1.30); MONOCYTES % (AUTO) 6.6 % (2.0-12.0); NEUTROPHILS # (AUTO) 13.8 /CMM (1.8-8.9); NEUTROPHILS % (AUTO) 86.3 % (43.0-81.0); PLATELET COUNT (AUTO) 318 /CMM (150-450); RED BLOOD CELL COUNT(AUTO) 2.69 MIL/uL (4.0-5.2)
[2016-10-18 06:35] LABS: CREATININE 2.4 mg/dL (0.6-1.3); PHOSPHORUS 4.1 mg/dL (2.5-4.9); POTASSIUM 3.7 mmol/L (3.5-5.1)
[2016-10-18] MEDS: SEVELAMER CARBONATE 0.8 GM POWD.PACK GT SCH ×4 (08:00→18:31)
[2016-10-18] MEDS: PANTOPRAZOLE 40 MG VIAL IV SCH (08:28)
[2016-10-18] MEDS: Z GUARD REMEDY 2 OZ OINT TP SCH (08:31)
[2016-10-18] MEDS: INSULIN DETEMIR 100 UNIT/ML CARTRIDGE SQ SCH ×2 (09:00→21:56)
[2016-10-18] MEDS: CEFTRIAXONE 1 G in IV D5W 50 ML IV SCH (09:53)
[2016-10-18] MEDS: BACITRACIN ZINC OINT (15 GM) 15 GM TUBE TP SCH ×2 (10:25→17:23)
[2016-10-18] MEDS: RENAL NOVASOURCE 1,000 ML BOTTLE GT PRN (18:33)
[2016-10-19] VITALS: BP 139/60
[2016-10-19] MEDS: BLOOD SUGAR DIAGNOSTIC 1 EACH STRIP IN SCH ×4 (00:19→17:03)
[2016-10-19] MEDS: INSULIN REGULAR, HUMAN 100 UNIT/ML 3 ML VIAL SQ SCH ×4 (00:49→17:05)
[2016-10-19] MEDS: METOCLOPRAMIDE HCL 10 MG/2 ML VIAL IV SCH ×4 (01:36→18:34)
[2016-10-19] MEDS: ALBUTEROL FS 2.5 MG/0.5 ML VIAL.NEB NEB SCH ×6 (03:10→23:22)
[2016-10-19] MEDS: IPRATROPIUM NEB FS 0.5 MG/2.5 ML AMPUL.NEB NEB SCH ×6 (03:10→23:22)
[2016-10-19 04:00] VITALS: BP 134/61
[2016-10-19] MEDS: IV NS 0.9% 250 ML IV PRN (04:38)
[2016-10-19 08:00] VITALS: BP 142/63
[2016-10-19] MEDS: INSULIN DETEMIR 100 UNIT/ML CARTRIDGE SQ SCH ×2 (08:37→22:00)
[2016-10-19] MEDS: PANTOPRAZOLE 40 MG VIAL IV SCH (08:38)
[2016-10-19] MEDS: SEVELAMER CARBONATE 0.8 GM POWD.PACK GT SCH ×3 (08:38→17:03)
[2016-10-19] MEDS: Z GUARD REMEDY 2 OZ OINT TP SCH (08:40)
[2016-10-19] MEDS: BACITRACIN ZINC OINT (15 GM) 15 GM TUBE TP SCH ×2 (08:40→17:09)
[2016-10-19 08:44] LABS: BASOPHILS % (AUTO) 0.1 % (0.0-2.0); DIFF TOTAL % 100 %; EOSINOPHILS # (AUTO) 0.3 /CMM (0.0-0.7); EOSINOPHILS % (AUTO) 1.7 % (0.0-6.0); HEMATOCRIT 24 % (33-45); HEMOGLOBIN 8.1 g/dL (11.5-14.8); LYMPHOCYTES # (AUTO) 1.1 /CMM (0.8-4.8); LYMPHOCYTES % (AUTO) 6.6 % (20.0-44.0); MEAN CORPUSCULAR HEMOGLOBIN 30 PG (26.0-33.0); MEAN CORPUSCULAR HGB CONC 34 g/dl (31.0-36.0); MEAN CORPUSCULAR VOLUME 88 fL (82-100); MONOCYTES % (AUTO) 5.9 % (2.0-12.0); NEUTROPHILS # (AUTO) 14.5 /CMM (1.8-8.9); NEUTROPHILS % (AUTO) 85.7 % (43.0-81.0); PLATELET COUNT (AUTO) 372 /CMM (150-450); RED BLOOD CELL COUNT(AUTO) 2.72 MIL/uL (4.0-5.2); WHITE BLOOD COUNT (AUTO) 16.9 K/uL (4.3-11.0)
[2016-10-19 08:55] LABS: CALCIUM, SERUM 8.4 mg/dL (8.5-10.1); CREATININE 2.7 mg/dL (0.6-1.3); PHOSPHORUS 4.2 mg/dL (2.5-4.9)
[2016-10-19] MEDS: CEFTRIAXONE 1 G in IV D5W 50 ML IV SCH (10:36)
[2016-10-19] MEDS ORDERED: ALTEPLASE CATHFLO 2 MG/VIAL IV ONE (11:30)
[2016-10-19] MEDS: ACETAMINOPHEN 325 MG TABLET PO PRN (11:43)
[2016-10-19 12:00] VITALS: BP 151/70
[2016-10-19 16:00] VITALS: BP 135/62
[2016-10-19 20:00] VITALS: BP 131/65
[2016-10-19] MEDS ORDERED: RENAL NOVASOURCE 1,000 ML BOTTLE GT PRN (22:30)
[2016-10-20] VITALS (8 sets, daily range): BP systolic 116–158; BP diastolic 59–71
[2016-10-20] MEDS: BLOOD SUGAR DIAGNOSTIC 1 EACH STRIP IN SCH ×5 (01:03→23:40)
[2016-10-20] MEDS: METOCLOPRAMIDE HCL 10 MG/2 ML VIAL IV SCH ×4 (01:03→20:04)
[2016-10-20] MEDS: RENAL NOVASOURCE 1,000 ML BOTTLE GT PRN (02:09)
[2016-10-20] MEDS: IPRATROPIUM NEB FS 0.5 MG/2.5 ML AMPUL.NEB NEB SCH ×6 (03:30→23:00)
[2016-10-20] MEDS: ALBUTEROL FS 2.5 MG/0.5 ML VIAL.NEB NEB SCH ×6 (03:30→23:00)
[2016-10-20] MEDS ORDERED: DEXTROSE 50%-WATER 50 ML DISP.SYRIN IV PRN (06:00)
[2016-10-20] MEDS: INSULIN REGULAR, HUMAN 100 UNIT/ML 3 ML VIAL SQ PRN ×3 (06:00→23:44)
[2016-10-20 07:05] LABS: BASOPHILS # (AUTO) 0.1 /CMM (0.0-0.2); BASOPHILS % (AUTO) 0.6 % (0.0-2.0); DIFF TOTAL % 100 %; HEMATOCRIT 21 % (33-45); HEMOGLOBIN 7.3 g/dL (11.5-14.8); LYMPHOCYTES # (AUTO) 1.1 /CMM (0.8-4.8); LYMPHOCYTES % (AUTO) 7.3 % (20.0-44.0); MEAN CORPUSCULAR HEMOGLOBIN 30 PG (26.0-33.0); MEAN CORPUSCULAR HGB CONC 35 g/dl (31.0-36.0); MEAN CORPUSCULAR VOLUME 88 fL (82-100); MONOCYTES # (AUTO) 0.9 /CMM (0.1-1.30); MONOCYTES % (AUTO) 5.7 % (2.0-12.0); NEUTROPHILS # (AUTO) 13.2 /CMM (1.8-8.9); NEUTROPHILS % (AUTO) 86.4 % (43.0-81.0); PLATELET COUNT (AUTO) 322 /CMM (150-450); RED BLOOD CELL COUNT(AUTO) 2.42 MIL/uL (4.0-5.2); WHITE BLOOD COUNT (AUTO) 15.3 K/uL (4.3-11.0)
[2016-10-20 07:07] LABS: CALCIUM, SERUM 8.1 mg/dL (8.5-10.1); CREATININE 2.7 mg/dL (0.6-1.3); POTASSIUM 3.7 mmol/L (3.5-5.1)
[2016-10-20] MEDS: PANTOPRAZOLE 40 MG VIAL IV SCH (08:56)
[2016-10-20] MEDS: SEVELAMER CARBONATE 0.8 GM POWD.PACK GT SCH ×3 (08:57→17:06)
[2016-10-20] MEDS: Z GUARD REMEDY 2 OZ OINT TP SCH (08:59)
[2016-10-20] MEDS: INSULIN DETEMIR 100 UNIT/ML CARTRIDGE SQ SCH ×2 (09:08→21:11)
[2016-10-20] MEDS: BACITRACIN ZINC OINT (15 GM) 15 GM TUBE TP SCH ×2 (09:14→16:50)
[2016-10-20] MEDS: CEFTRIAXONE 1 G in IV D5W 50 ML IV SCH (10:36)
[2016-10-20] MEDS: ACETAMINOPHEN 650 MG/SUPP.RECT RC PRN (18:06)
[2016-10-21] VITALS: BP 132/66
[2016-10-21] MEDS: METOCLOPRAMIDE HCL 10 MG/2 ML VIAL IV SCH ×5 (01:44→21:45)
[2016-10-21] MEDS: IPRATROPIUM NEB FS 0.5 MG/2.5 ML AMPUL.NEB NEB SCH ×6 (03:42→23:11)
[2016-10-21] MEDS: ALBUTEROL FS 2.5 MG/0.5 ML VIAL.NEB NEB SCH ×6 (03:43→23:11)
[2016-10-21 04:00] VITALS: BP 156/71
[2016-10-21] MEDS: BLOOD SUGAR DIAGNOSTIC 1 EACH STRIP IN SCH ×3 (05:35→17:22)
[2016-10-21] MEDS: INSULIN REGULAR, HUMAN 100 UNIT/ML 3 ML VIAL SQ PRN ×2 (05:38→17:27)
[2016-10-21 07:13] LABS: CALCIUM, SERUM 8.3 mg/dL (8.5-10.1); CREATININE 2.8 mg/dL (0.6-1.3); PHOSPHORUS 4.8 mg/dL (2.5-4.9); POTASSIUM 3.8 mmol/L (3.5-5.1)
[2016-10-21 07:16] VITALS: BP 149/63
[2016-10-21] MEDS: SEVELAMER CARBONATE 0.8 GM POWD.PACK GT SCH ×3 (08:00→17:01)
[2016-10-21] MEDS: PANTOPRAZOLE 40 MG VIAL IV SCH (08:07)
[2016-10-21] MEDS: INSULIN DETEMIR 100 UNIT/ML CARTRIDGE SQ SCH ×2 (08:07→21:46)
[2016-10-21] MEDS: Z GUARD REMEDY 2 OZ OINT TP SCH (08:09)
[2016-10-21] MEDS: BACITRACIN ZINC OINT (15 GM) 15 GM TUBE TP SCH ×2 (08:10→17:02)
[2016-10-21] MEDS: CEFTRIAXONE 1 G in IV D5W 50 ML IV SCH (09:29)
[2016-10-21] MEDS ORDERED: DIATR MEGLU/DIATRIZOATE SODIUM 30 ML BOTTLE (GASTROGRAPHIN) ONE (09:33)
[2016-10-21] MEDS ORDERED: DIATR MEGLU/DIATRIZOATE SODIUM 120 ML BOTTLE (GASTROGRAPHIN) ONE (09:33)
[2016-10-21 09:42] LABS: BASOPHILS # (AUTO) 0.1 /CMM (0.0-0.2); BASOPHILS % (AUTO) 0.5 % (0.0-2.0); DIFF TOTAL % 100 %; EOSINOPHILS # (AUTO) 0.2 /CMM (0.0-0.7); EOSINOPHILS % (AUTO) 1.2 % (0.0-6.0); HEMATOCRIT 22 % (33-45); HEMOGLOBIN 7.5 g/dL (11.5-14.8); LYMPHOCYTES # (AUTO) 1.2 /CMM (0.8-4.8); MEAN CORPUSCULAR HEMOGLOBIN 30 PG (26.0-33.0); MEAN CORPUSCULAR HGB CONC 34 g/dl (31.0-36.0); MEAN CORPUSCULAR VOLUME 87 fL (82-100); MONOCYTES % (AUTO) 6.5 % (2.0-12.0); NEUTROPHILS % (AUTO) 83.8 % (43.0-81.0); PLATELET COUNT (AUTO) 336 /CMM (150-450); RED BLOOD CELL COUNT(AUTO) 2.51 MIL/uL (4.0-5.2); WHITE BLOOD COUNT (AUTO) 15.5 K/uL (4.3-11.0)
[2016-10-21 12:00] VITALS: BP 147/68
[2016-10-21 16:00] VITALS: BP 153/74
[2016-10-21] MEDS: RENAL NOVASOURCE 1,000 ML BOTTLE GT PRN (16:53)
[2016-10-21 20:00] VITALS: BP 121/72
[2016-10-22] VITALS (7 sets, daily range): BP systolic 113–132; BP diastolic 54–78
[2016-10-22] MEDS: INSULIN REGULAR, HUMAN 100 UNIT/ML 3 ML VIAL SQ PRN ×3 (00:44→11:30)
[2016-10-22] MEDS: BLOOD SUGAR DIAGNOSTIC 1 EACH STRIP IN SCH ×4 (00:46→17:38)
[2016-10-22] MEDS: METOCLOPRAMIDE HCL 10 MG/2 ML VIAL IV SCH ×4 (02:26→20:41)
[2016-10-22] MEDS: IV NS 0.9% 250 ML IV PRN (02:36)
[2016-10-22] MEDS: IPRATROPIUM NEB FS 0.5 MG/2.5 ML AMPUL.NEB NEB SCH ×5 (03:30→19:25)
[2016-10-22] MEDS: ALBUTEROL FS 2.5 MG/0.5 ML VIAL.NEB NEB SCH ×5 (03:37→19:25)
[2016-10-22 07:15] LABS: BASOPHILS % (AUTO) 0.2 % (0.0-2.0); DIFF TOTAL % 100 %; EOSINOPHILS # (AUTO) 0.1 /CMM (0.0-0.7); EOSINOPHILS % (AUTO) 0.8 % (0.0-6.0); HEMATOCRIT 22 % (33-45); HEMOGLOBIN 7.6 g/dL (11.5-14.8); LYMPHOCYTES % (AUTO) 6.6 % (20.0-44.0); MEAN CORPUSCULAR HEMOGLOBIN 30 PG (26.0-33.0); MEAN CORPUSCULAR HGB CONC 34 g/dl (31.0-36.0); MEAN CORPUSCULAR VOLUME 88 fL (82-100); MONOCYTES # (AUTO) 0.9 /CMM (0.1-1.30); MONOCYTES % (AUTO) 5.8 % (2.0-12.0); NEUTROPHILS # (AUTO) 13.4 /CMM (1.8-8.9); NEUTROPHILS % (AUTO) 86.6 % (43.0-81.0); PLATELET COUNT (AUTO) 328 /CMM (150-450); RED BLOOD CELL COUNT(AUTO) 2.52 MIL/uL (4.0-5.2); WHITE BLOOD COUNT (AUTO) 15.4 K/uL (4.3-11.0)
[2016-10-22 08:00] LABS: CALCIUM, SERUM 8.3 mg/dL (8.5-10.1); CREATININE 2.2 mg/dL (0.6-1.3); PHOSPHORUS 3.3 mg/dL (2.5-4.9)
[2016-10-22] MEDS: SEVELAMER CARBONATE 0.8 GM POWD.PACK GT SCH ×3 (08:54→17:24)
[2016-10-22] MEDS: PANTOPRAZOLE 40 MG VIAL IV SCH (08:54)
[2016-10-22] MEDS: INSULIN DETEMIR 100 UNIT/ML CARTRIDGE SQ SCH (09:14)
[2016-10-22] MEDS: BACITRACIN ZINC OINT (15 GM) 15 GM TUBE TP SCH ×2 (09:15→17:19)
[2016-10-22] MEDS: Z GUARD REMEDY 2 OZ OINT TP SCH (09:16)
[2016-10-22] MEDS: CEFTRIAXONE 1 G in IV D5W 50 ML IV SCH (09:22)
[2016-10-22] MEDS ORDERED: RENAL NOVASOURCE 1,000 ML BOTTLE GT PRN ×2 (09:44→14:04)
[2016-10-22] MEDS: POTASSIUM CHLORIDE 20 MEQ POWDER PACKET GT SCH ×2 (17:16→17:23)
[2016-10-22] MEDS ORDERED: INSULIN DETEMIR 100 UNIT/ML CARTRIDGE SQ SCH (21:00)
== END 2016-10-22 21:45 | DRG 5 ==
LOC: ER 15:44 → EDBD 19:31 → MEDSG2 19:31 → ICU 09-23 22:43 → TELE1 09-27 12:25 → ICU 09-27 21:31 → TELE 10-09 23:49
PROVIDERS: ADMIT Internal Medicine; ATTEND Internal Medicine
PROC: 5A2204Z Restoration of Cardiac Rhythm, Single (ICD-10-PCS; principal; 2016-09-24)
PROC: 5A1945Z Respiratory Ventilation, 24-96 Consecutive Hours (ICD-10-PCS; principal; 2016-09-24)
PROC: 05HA33Z Insertion of Infusion Device into Left Brachial Vein, Percutaneous Approach (ICD-10-PCS; principal; 2016-09-24)
PROC: 0BH18EZ Insertion of Endotracheal Airway into Trachea, Via Natural or Artificial Opening Endoscopic (ICD-10-PCS; principal; 2016-09-24)
PROC: 0BJ08ZZ Inspection of Tracheobronchial Tree, Via Natural or Artificial Opening Endoscopic (ICD-10-PCS; 2016-09-25)
PROC: 5A1955Z Respiratory Ventilation, Greater than 96 Consecutive Hours (ICD-10-PCS; 2016-09-27)
PROC: 5A2204Z Restoration of Cardiac Rhythm, Single (ICD-10-PCS; 2016-09-27)
PROC: 0BH18EZ Insertion of Endotracheal Airway into Trachea, Via Natural or Artificial Opening Endoscopic (ICD-10-PCS; 2016-09-27)
PROC: B548ZZA Ultrasonography of Superior Vena Cava, Guidance (ICD-10-PCS; 2016-09-28)
PROC: 02HV33Z Insertion of Infusion Device into Superior Vena Cava, Percutaneous Approach (ICD-10-PCS; 2016-09-28)
PROC: 30233N1 Transfusion of Nonautologous Red Blood Cells into Peripheral Vein, Percutaneous Approach (ICD-10-PCS; 2016-09-29)
PROC: 05H533Z Insertion of Infusion Device into Right Subclavian Vein, Percutaneous Approach (ICD-10-PCS; 2016-10-01)
PROC: 5A1D60Z (ICD-10-PCS; 2016-10-01)
PROC: 0DH63UZ Insertion of Feeding Device into Stomach, Percutaneous Approach (ICD-10-PCS; 2016-10-06)
PROC: 0B113F4 Bypass Trachea to Cutaneous with Tracheostomy Device, Percutaneous Approach (ICD-10-PCS; 2016-10-08)
PROC: B548ZZA Ultrasonography of Superior Vena Cava, Guidance (ICD-10-PCS; 2016-10-22)
PROC: 02HV33Z Insertion of Infusion Device into Superior Vena Cava, Percutaneous Approach (ICD-10-PCS; 2016-10-22)
DX: J69.0 Pneumonitis due to inhalation of food and vomit (principal); N17.0 Acute kidney failure with tubular necrosis; I21.4 Non-ST elevation (NSTEMI) myocardial infarction; G93.1 Anoxic brain damage, not elsewhere classified; K85.90 Acute pancreatitis without necrosis or infection, unspecified; E87.0 Hyperosmolality and hypernatremia; R53.2 Functional quadriplegia; N18.6 End stage renal disease; J15.6 Pneumonia due to other Gram-negative bacteria; J96.01 Acute respiratory failure with hypoxia; I46.9 Cardiac arrest, cause unspecified; E11.65 Type 2 diabetes mellitus with hyperglycemia; I47.1 Supraventricular tachycardia; I50.9 Heart failure, unspecified; E87.5 Hyperkalemia; E78.5 Hyperlipidemia, unspecified; K80.20 Calculus of gallbladder without cholecystitis without obstruction; E78.00 Pure hypercholesterolemia, unspecified; D72.829 Elevated white blood cell count, unspecified; E66.9 Obesity, unspecified; E87.6 Hypokalemia; E83.39 Other disorders of phosphorus metabolism; D63.8 Anemia in other chronic diseases classified elsewhere; E11.22 Type 2 diabetes mellitus with diabetic chronic kidney disease; Z79.4 Long term (current) use of insulin; Z68.24 Body mass index [BMI] 24.0-24.9, adult; R74.0 Nonspecific elevation of levels of transaminase and lactic acid dehydrogenase [LDH]; K56.7 Ileus, unspecified; I13.11 Hypertensive heart and chronic kidney disease without heart failure, with stage 5 chronic kidney disease, or end stage renal disease
CPT/HCPCS: 31623; 31720; 36415; 36569; 36600; 43246; 70450-TC; 71010-TC; 72192-TC; 74000-TC; 74150-TC; 74250-TC; 76705-TC; 80048-TC; 80053-TC; 80061-TC; 80074; 80076-TC; 81000-TC; 82040-TC; 82150-TC; 82272-TC; 82306; 82550-TC; 82553-TC; 82570-TC; 82728-TC; 82803-TC; 82945-TC; 82962-TC; 83540-TC; 83690-TC; 83735-TC; 83970; 84100-TC; 84132-TC; 84155; 84155-TC; 84165; 84300-TC; 84439-TC; 84443-TC; 84484-TC; 85025-TC; 85027-TC; 85730-TC; 86301; 86850-TC; 86921-TC; 87040-TC; 87070-TC; 87081-TC; 87086-TC; 87186-TC; 90935-TC; 93307-TC; 94002-TC; 94003-TC; 94640-TC; 94760-TC; 94799-TC; 95819-TC; 99082-TC; A4606; A6248; A6253; A6402; A6403; A7526; C1750; C1751; C9113; J0171; J0500; J0696; J0780; J1170; J1815; J1940; J2060; J2270; J2405; J2543; J2704; J2765; J2997; J3010; J3475; J3480; J3490; J7030; J7042; J7050; J7060; J7070; P9016-BL; P9047; Q9963; Z7610

== ENCOUNTER 2016-11-03 15:03 | Inpatient (IN) | payer MEDICAID ==
[~2016-11-03] VITALS: Ht 165.1 cm; Wt 54.7 kg
[~2016-11-03 15:03] MED LIST: ASPI81TA2; ATOR40TA GT; INSU100V26 SQ; LISI40TA4 PO; METF10002 PO
[2016-11-03] MEDS ORDERED: IV NS 0.9% 1,000 ML BAG IV ONE (15:30)
[2016-11-03] MEDS ORDERED: IV NS 0.9% 1,000 ML ONE (16:05)
[2016-11-03] MEDS ORDERED: IV SET PRIMARY PUMP SET 1 EA INFUS.SET MC ONE ×3 (16:05→23:37)
[2016-11-03 16:06] LABS: BASOPHILS # (AUTO) 0.1 /CMM (0.0-0.2); BASOPHILS % (AUTO) 0.8 % (0.0-2.0); DIFF TOTAL % 100 %; EOSINOPHILS # (AUTO) 0.5 /CMM (0.0-0.7); EOSINOPHILS % (AUTO) 3.6 % (0.0-6.0); HEMATOCRIT 21 % (33-45); HEMOGLOBIN 7.3 g/dL (11.5-14.8); LYMPHOCYTES # (AUTO) 2.1 /CMM (0.8-4.8); LYMPHOCYTES % (AUTO) 16.2 % (20.0-44.0); MEAN CORPUSCULAR HEMOGLOBIN 30 PG (26.0-33.0); MEAN CORPUSCULAR HGB CONC 34 g/dl (31.0-36.0); MEAN CORPUSCULAR VOLUME 88 fL (82-100); MONOCYTES # (AUTO) 0.7 /CMM (0.1-1.30); MONOCYTES % (AUTO) 5.1 % (2.0-12.0); NEUTROPHILS # (AUTO) 9.7 /CMM (1.8-8.9); NEUTROPHILS % (AUTO) 74.3 % (43.0-81.0); PLATELET COUNT (AUTO) 473 /CMM (150-450); RED BLOOD CELL COUNT(AUTO) 2.41 MIL/uL (4.0-5.2); WHITE BLOOD COUNT (AUTO) 13.1 K/uL (4.3-11.0)
[2016-11-03 16:21] LABS: ALBUMIN 1.8 g/dL (3.4-5.0); BILIRUBIN,DIRECT 0.2 mg/dL (0.0-0.2); BILIRUBIN,TOTAL 0.6 mg/dL (0.2-1.0); CALCIUM, SERUM 8.2 mg/dL (8.5-10.1); CREATININE 0.9 mg/dL (0.6-1.3); INDIRECT BILIRUBIN 0.4 mg/dL (0.0-1.1); TOTAL PROTEIN, SERUM 7.1 g/dL (6.4-8.2); TROPONIN I 0.019 ng/mL (0.00-0.056)
[2016-11-03 16:37] LABS: POTASSIUM 2.8 mmol/L (3.5-5.1)
[2016-11-03] MEDS ORDERED: LABETALOL HCL IV 100MG VIAL ONE (16:58)
[2016-11-03] MEDS ORDERED: LABETALOL 20 MG/4 ML VIAL IV ONE (17:00)
[2016-11-03] MEDS ORDERED: POTASSIUM CL. PREMIX PERIPHER. 50 ML ONE ×2 (17:21→23:39)
[2016-11-03] MEDS ORDERED: PIPERACILLIN /TAZOBACTAM 3.375 G in IV D5W 50 ML IV ONE (17:30)
[2016-11-03 17:52] VITALS: BP 147/74
[2016-11-03] MEDS ORDERED: CLON1PAT TD (17:58)
[2016-11-03] MEDS ORDERED: ACET325T53 GT (17:58)
[2016-11-03] MEDS ORDERED: HYDR-4075 GT (17:58)
[2016-11-03] MEDS ORDERED: DOCU50LI GT (17:58)
[2016-11-03] MEDS ORDERED: SEVE0.8P GT (17:58)
[2016-11-03] MEDS ORDERED: METO-295 GT (17:58)
[2016-11-03] MEDS ORDERED: INSU100V10 SQ (17:58)
[2016-11-03] MEDS ORDERED: INSU100V3 SQ (17:58)
[2016-11-03] MEDS ORDERED: IV NS 0.9% 1,000 ML IV PRN (17:59)
[2016-11-03] MEDS ORDERED: ONDANSETRON HCL/PF 4 MG/2 ML VIAL IVP PRN (18:00)
[2016-11-03] MEDS ORDERED: ACETAMINOPHEN 325 MG TABLET PO PRN (18:00)
[2016-11-03] MEDS ORDERED: Z GUARD REMEDY 2 OZ OINT TP PRN (18:00)
[2016-11-03] MEDS ORDERED: MAGNESIUM HYDROXIDE 30 ML UDC PO PRN (18:00)
[2016-11-03] MEDS ORDERED: HYDROCODONE/APAP 10/325MG 1 EA TABLET PO PRN (18:00)
[2016-11-03] MEDS ORDERED: HYDROCODONE/APAP 5/325MG 1 EACH TABLET PO PRN (18:00)
[2016-11-03] MEDS ORDERED: ZOLPIDEM TARTRATE 5 MG TABLET PO PRN (18:00)
[2016-11-03] MEDS ORDERED: MORPHINE SULFATE INJ 2 MG/ML DISP.SYRIN IV PRN (18:00)
[2016-11-03] MEDS ORDERED: MAG HYDROX/AL HYDROX/SIMETH 30 ML UDC PO PRN (18:00)
[2016-11-03] MEDS ORDERED: PANT40SU GT (18:09)
[2016-11-03] MEDS ORDERED: ACET160L15 GT (18:09)
[2016-11-03] MEDS ORDERED: FERR220S2 GT (18:14)
[2016-11-03] MEDS: POTASSIUM CL. PREMIX PERIPHER. 50 ML IV SCH ×2 (18:30→23:47)
[2016-11-03 20:00] VITALS: BP 151/73
[2016-11-03 20:45] VITALS: BP 151/90
[2016-11-03] MEDS ORDERED: PIPERACILLIN /TAZOBACTAM 4.5 G in IV D5W 50 ML IV SCH (21:00)
[2016-11-03] MEDS ORDERED: SECONDARY IV SET 1 EA INFUS.SET MC ONE (23:38)
[2016-11-04] VITALS: BP 147/72
[2016-11-04] MEDS ORDERED: POTASSIUM CL. PREMIX PERIPHER. 50 ML ONE ×2 (00:35→02:00)
[2016-11-04] MEDS ORDERED: IV SET PRIMARY PUMP SET 1 EA INFUS.SET MC ONE (00:43)
[2016-11-04] MEDS: PIPERACILLIN /TAZOBACTAM 3.375 G in IV D5W 50 ML IV SCH ×3 (00:55→12:23)
[2016-11-04] MEDS: POTASSIUM CL. PREMIX PERIPHER. 50 ML IV SCH ×2 (01:00→02:05)
[2016-11-04 04:00] VITALS: BP 169/75
[2016-11-04 06:54] VITALS: BP 130/68
[2016-11-04] MEDS ORDERED: PANTOPRAZOLE 40 MG TABLET.DR PO SCH (07:30)
[2016-11-04 08:00] VITALS: BP 150/90
[2016-11-04 08:08] LABS: CREATININE 0.9 mg/dL (0.6-1.3); PHOSPHORUS 4.2 mg/dL (2.5-4.9); THYROID STIMULATING HORMONE 1.727 uIU/mL (0.358-3.74)
[2016-11-04 08:23] LABS: BASOPHILS # (AUTO) 0.1 /CMM (0.0-0.2); BASOPHILS % (AUTO) 0.9 % (0.0-2.0); DIFF TOTAL % 100 %; EOSINOPHILS # (AUTO) 0.4 /CMM (0.0-0.7); EOSINOPHILS % (AUTO) 3.1 % (0.0-6.0); LYMPHOCYTES % (AUTO) 17.1 % (20.0-44.0); MEAN CORPUSCULAR HEMOGLOBIN 30 PG (26.0-33.0); MEAN CORPUSCULAR HGB CONC 33 g/dl (31.0-36.0); MEAN CORPUSCULAR VOLUME 89 fL (82-100); MONOCYTES # (AUTO) 0.7 /CMM (0.1-1.30); NEUTROPHILS # (AUTO) 8.4 /CMM (1.8-8.9); NEUTROPHILS % (AUTO) 72.9 % (43.0-81.0); PLATELET COUNT (AUTO) 428 /CMM (150-450); WHITE BLOOD COUNT (AUTO) 11.5 K/uL (4.3-11.0)
[2016-11-04 08:54] LABS: HEMATOCRIT 20 % (33-45); HEMOGLOBIN 6.8 g/dL (11.5-14.8)
[2016-11-04] MEDS ORDERED: Z GUARD REMEDY 2 OZ OINT TP PRN (09:30)
[2016-11-04] MEDS ORDERED: ACETAMINOPHEN 640 MG GT PRN (11:00)
[2016-11-04] MEDS ORDERED: DEXTROSE 50%-WATER 50 ML DISP.SYRIN IV PRN (11:00)
[2016-11-04] MEDS ORDERED: INSULIN REGULAR, HUMAN 100 UNIT/ML 3 ML VIAL SQ PRN (11:00)
[2016-11-04] MEDS ORDERED: SECONDARY IV SET 1 EA INFUS.SET MC ONE (11:58)
[2016-11-04 12:00] VITALS: BP 162/108
[2016-11-04] MEDS ORDERED: BLOOD SUGAR DIAGNOSTIC 1 EACH STRIP IN SCH (12:00)
[2016-11-04 12:12] LABS: EOSINOPHILS % (MANUAL) 1 % (0-4); LYMPHOCYTES % (MANUAL) 22 % (16-48); PLATELET ESTIMATE INCREASED
[2016-11-04] MEDS ORDERED: PANTOPRAZOLE 40 MG VIAL IV SCH (12:22)
[2016-11-04] MEDS: Magnesium 1GM/D5W 100ML PREMIX 100 ML IV SCH ×2 (12:30→13:30)
[2016-11-04] MEDS ORDERED: LISINOPRIL (20MG) 20 MG TABLET PO SCH (12:30)
[2016-11-04] MEDS ORDERED: SEVELAMER CARBONATE 0.8 GM POWD.PACK GT SCH (13:00)
[2016-11-04] MEDS ORDERED: hydrALAZINE HCL 10 MG TABLET GT SCH (13:00)
[2016-11-04] MEDS ORDERED: METOCLOPRAMIDE HCL 10 MG TABLET GT SCH (13:00)
[2016-11-04] MEDS ORDERED: CLONIDINE HCL 0.2MG/24H PTWK 1 EA PATCH TD SCH (14:00)
[2016-11-04 16:00] VITALS: BP 156/77
[2016-11-04] MEDS ORDERED: INSULIN REGULAR, HUMAN 100 UNIT/ML 3 ML VIAL SQ SCH (17:00)
[2016-11-04] MEDS ORDERED: METFORMIN 500 MG TABLET PO SCH (17:00)
[2016-11-04] MEDS ORDERED: Z GUARD REMEDY 2 OZ OINT TP SCH (17:00)
[2016-11-04] MEDS ORDERED: FERROUS SULFATE UDC 300 MG/5 ML UDC GT SCH (17:00)
[2016-11-04] MEDS ORDERED: INSULIN DETEMIR 100 UNIT/ML CARTRIDGE SQ SCH (21:00)
[2016-11-04] MEDS ORDERED: ATORVASTATIN 40 MG TABLET GT SCH (22:00)
[2016-11-05] MEDS ORDERED: DOCUSATE SODIUM LIQ 100 MG/10 ML UDC GT SCH (09:00)
[2016-11-05] MEDS ORDERED: ASPIRIN 81 MG TAB.CHEW GT SCH (09:00)
[2016-11-10] MEDS ORDERED: CLONIDINE HCL 0.1MG/24H PTWK 1 EA PATCH TD SCH (09:00)
== END 2016-11-04 15:30 | DRG 282 ==
LOC: ER 15:04 → TELE 18:41
PROC: 5A1935Z Respiratory Ventilation, Less than 24 Consecutive Hours (ICD-10-PCS; principal; 2016-11-03)
DX: K86.3 Pseudocyst of pancreas (principal); G93.49 Other encephalopathy; G93.1 Anoxic brain damage, not elsewhere classified; Z99.11 Dependence on respirator [ventilator] status; J96.10 Chronic respiratory failure, unspecified whether with hypoxia or hypercapnia; R53.2 Functional quadriplegia; Z93.0 Tracheostomy status; D72.829 Elevated white blood cell count, unspecified; I10 Essential (primary) hypertension; Z93.1 Gastrostomy status; R13.10 Dysphagia, unspecified; E11.9 Type 2 diabetes mellitus without complications; D63.8 Anemia in other chronic diseases classified elsewhere; K80.00 Calculus of gallbladder with acute cholecystitis without obstruction; E78.00 Pure hypercholesterolemia, unspecified; E87.6 Hypokalemia; J98.11 Atelectasis; K76.0 Fatty (change of) liver, not elsewhere classified; K86.89 Other specified diseases of pancreas; N20.0 Calculus of kidney; N83.209 Unspecified ovarian cyst, unspecified side; Z87.442 Personal history of urinary calculi
CPT/HCPCS: 31720; 36415; 71010-TC; 76705-TC; 80048-TC; 80061-TC; 80076-TC; 82962-TC; 83690-TC; 83735-TC; 84100-TC; 84443-TC; 84484-TC; 85025-TC; 86850-TC; 86901; 86921-TC; 87040-TC; 87081-TC; 94002-TC; A4606; C9113; J1815; J2543; J3480; J3490; J7030; J7060; Z7610